=== PATIENT | male | born 1975 | race African-American/Black ===

== ENCOUNTER 2018-03-30 22:33 | Emergency (ER) | payer OTHER ==
[~2018-03-30] VITALS: Ht 175.3 cm; Wt 86.2 kg
[~2018-03-30 22:33] MED LIST: AMBIEN10 MG ORAL; BENZTROPINE ME0.5 MG PO; CLONIDINE1 EAC1 TD; SEROQUEL400 MG ORAL; SERTRALINE HCL100 MG PO; ZOLOFT25 MG ORAL
[2018-03-30 22:35] VITALS: BP 160/82
--- NOTE | 2018-03-30 22:35 | NUR ---
ED Nurse Note: Patient has back pain 10/10, denies nausea and vomiting. pt stated he doesnt feel good. maybe it his kidney that has a proble, pt able to give urine sample and sent to lab. will continue to monitor
[2018-03-30] MEDS ORDERED: Morphine Sulfate 4mg/ml Inj (IV/IM USE ONLY) IVP ONE (23:15)
--- NOTE | 2018-03-30 23:20 | NUR ---
ED Nurse Note: pt went to ct with tech
--- NOTE | 2018-03-30 23:30 | NUR ---
ED Nurse Note: pt went back from ct with tech
[2018-03-30 23:42] LABS: BASOPHILS % (AUTO) 0.9 % (0.0-2.0); HEMATOCRIT 46.6 % (42.0-52.0); HEMOGLOBIN 15.8 G/DL (14.2-18.0); LYMPHOCYTES % (AUTO) 22.2 % (20.0-45.0); MEAN CORPUSCULAR VOLUME 76 FL (80-99); MONOCYTES % (AUTO) 6.7 % (1.0-10.0); NEUTROPHILS % (AUTO) 68.3 % (45.0-75.0); PLATELET COUNT 398 K/UL (150-450); RED BLOOD COUNT 6.13 M/UL (4.70-6.10); RED CELL DISTRIBUTION WIDTH 13.7 % (11.6-14.8); WHITE BLOOD COUNT 14.3 K/UL (4.8-10.8)
[2018-03-30 23:43] LABS: APPEARANCE,URINE CLEAR; BILIRUBIN, URINE NEGATIVE (NEGATIVE); GLUCOSE, URINE (UA) NEGATIVE (NEGATIVE); KETONES,URINE NEGATIVE (NEGATIVE); LEUKOCYTE ESTERASE ,URINE NEGATIVE (NEGATIVE); NITRITE,URINE NEGATIVE (NEGATIVE); PH,URINE 6 (4.5-8.0); UROBILINOGEN,URINE NORMAL MG/DL (0.0-1.0)
[2018-03-30 23:48] LABS: ANION GAP 14 mmol/L (5-15); BLOOD UREA NITROGEN 18 mg/dL (7-18); CALCIUM 10.5 MG/DL (8.5-10.1); CARBON DIOXIDE 25 MMOL/L (21-32); CHLORIDE 100 MMOL/L (98-107); CREATININE 1.3 MG/DL (0.55-1.30); SODIUM 138 MMOL/L (136-145)
[2018-03-30 23:52] LABS: PROTEIN,URINE NEGATIVE (NEGATIVE)
[2018-03-30 23:52] LABS: ALANINE AMINOTRANSFERASE 22 U/L (12-78); ALBUMIN 4.9 G/DL (3.4-5.0); ALBUMIN/GLOBULIN RATIO 1.1 (1.0-2.7); ALKALINE PHOSPHATASE 76 U/L (46-116); ASPARTATE AMINO TRANSFERASE 22 U/L (15-37); BILIRUBIN,TOTAL 0.5 MG/DL (0.2-1.0)
[2018-03-30 23:53] LABS: COLOR,URINE YELLOW
--- NOTE | 2018-03-31 | NUR ---
ED Nurse Note: Received patient from JUAN CARLOS Hardy. Patient AO4. NAD. VSS. Attached to the monitor.
[2018-03-31 00:02] VITALS: BP 151/84
[2018-03-31] MEDS ORDERED: Aspirin Baby 81mg ORAL ONE (00:15)
[2018-03-31] MEDS ORDERED: Nitroglycerin Subl 0.4mg tab SL ONE (00:15)
[2018-03-31 00:44] VITALS: BP 109/67
--- NOTE | 2018-03-31 00:56 | Emergency Room Report ---
History of Present Illness General Chief Complaint: Back Pain-No Injury Source: Patient Present Illness HPI Is a 43-year-old male with history hypertension. He takes clonidine 0.3 mg 3 times a day. He been off it for a while. Start back today. He presents with chief complaint of back pain and chest pain. Ongoing for 2 days. Pain to the back is localized to the right side. He said this is kidney problem. He has history of kidney stone. Chest pain is to the left side sharp in nature. Comes and go. No exertional component. No fever chills but no nausea no vomiting. Pain is 9 out of 10. No incontinence of bowel or urine. No exertional component. No diaphoresis. Allergies: Coded Allergies: HALOPERIDOL (Verified Allergy, Unknown, 03/30/18) PALIPERIDONE (Verified Allergy, Unknown, 03/30/18) Patient History Past Medical History: see triage record, old chart reviewed, HTN Past Surgical History: other Pertinent Family History: none Social History: Reports: smoking Immunizations: other Reviewed Nursing Documentation: PMH: Agreed; PSxH: Agreed Nursing Documentation-PMH Hx Hypertension: Yes History Of Psychiatric Problem: Yes - bipolar Review of Systems Eye: Denies: eye pain, blurred vision ENT: Denies: ear pain, nose congestion, throat swelling Respiratory: Denies: cough, shortness of breath Cardiovascular: Reports: chest pain; Denies: palpitations Gastrointestinal: Denies: abdominal pain, diarrhea, nausea, vomiting Musculoskeletal: Reports: back pain; Denies: joint pain Skin: Denies: rash Neurological: Denies: headache, numbness Endocrine: Denies: increased thirst, increased urine Hematologic/Lymphatic: Denies: easy bruising All Other Systems: negative except mentioned in HPI Physical Exam Vital Signs Date Time Temp Pulse Resp B/P (MAP) Pulse Ox O2 Delivery O2 Flow Rate FiO2 03/30/18 22:24 97.5 112 16 160/82 95 Room Air vitals with hypertension Sp02 EP Interpretation: reviewed, normal General Appearance: well appearing, no apparent distress, alert Head: normocephalic, atraumatic Eyes: bilateral eye PERRL, bilateral eye EOMI ENT: hearing grossly normal, normal pharynx Neck: full range of motion, supple, no meningismus Respiratory: chest non-tender, lungs clear, normal breath sounds Cardiovascular #1: regular rate, rhythm, no murmur Gastrointestinal: normal bowel sounds, non tender, no mass, no organomegaly, no bruit, non-distended Musculoskeletal: back normal, gait/station normal, normal range of motion Psychiatric: mood/affect normal Skin: warm/dry Medical Decision Making Diagnostic Impression: Primary Impression: Chest pain Qualified Codes: R07.9 - Chest pain, unspecified Additional Impressions: Hypertension Qualified Codes: I10 - Essential (primary) hypertension Back pain Qualified Codes: M54.5 - Low back pain ER Course Patient presents with back pain and chest pain. CT scan negative for renal colic or acute abdomen. Back pain is most likely muscular skeletal pain. No evidence of renal infarct. No evidence of cauda equina syndrome, spinal epidural abscess or neoplastic process. Chest pain improved with nitroglycerin and aspirin. Blood pressure improved. Because of his severely high blood pressure and chest pain, will admit versus transfer for further workup. I discussed case with Dr. Aceves who accepted pt for transfer to [facility]. Laboratory Tests Test 03/30/18 23:12 03/30/18 23:14 03/31/18 02:00 Urine Color Yellow Urine Appearance Clear Urine pH 6 (4.5-8.0) Urine Specific [place] 1.020 (1.005-1.035) Urine Protein Negative (NEGATIVE) Urine Glucose (UA) Negative (NEGATIVE) Urine Ketones Negative (NEGATIVE) Urine Blood Negative (NEGATIVE) Urine Nitrite Negative (NEGATIVE) Urine Bilirubin Negative (NEGATIVE) Urine Ictotest Negative (NEGATIVE) Urine Urobilinogen Normal MG/DL (0.0-1.0) Urine Leukocyte Esterase Negative (NEGATIVE) Urine Opiates Screen Negative (NEGATIVE) Urine Barbiturates Screen Negative (NEGATIVE) Phencyclidine (PCP) Screen Negative (NEGATIVE) Urine Amphetamines Screen Negative (NEGATIVE) Urine Benzodiazepines Screen Positive (NEGATIVE) H Urine Cocaine Screen Negative (NEGATIVE) Urine Marijuana (THC) Screen Negative (NEGATIVE) White Blood Count 14.3 K/UL (4.8-10.8) H Red Blood Count 6.13 M/UL (4.70-6.10) H Hemoglobin 15.8 G/DL (14.2-18.0) Hematocrit 46.6 % (42.0-52.0) Mean Corpuscular Volume 76 FL (80-99) L Mean Corpuscular Hemoglobin 25.8 PG (27.0-31.0) L Mean Corpuscular Hemoglobin Concent 33.9 G/DL (32.0-36.0) Red Cell Distribution Width 13.7 % (11.6-14.8) Platelet Count 398 K/UL (150-450) Mean Platelet Volume 5.1 FL (6.5-10.1) L Neutrophils (%) (Auto) 68.3 % (45.0-75.0) Lymphocytes (%) (Auto) 22.2 % (20.0-45.0) Monocytes (%) (Auto) 6.7 % (1.0-10.0) Eosinophils (%) (Auto) 2.0 % (0.0-3.0) Basophils (%) (Auto) 0.9 % (0.0-2.0) Sodium Level 138 MMOL/L (136-145) Potassium Level 4.0 MMOL/L (3.5-5.1) Chloride Level 100 MMOL/L (98-107) Carbon Dioxide Level 25 MMOL/L (21-32) Anion Gap 14 mmol/L (5-15) Blood Urea Nitrogen 18 mg/dL (7-18) Creatinine 1.3 MG/DL (0.55-1.30) Estimat Glomerular Filtration Rate > 60 mL/min (>60) Glucose Level 119 MG/DL (74-106) H Calcium Level 10.5 MG/DL (8.5-10.1) H Total Bilirubin 0.5 MG/DL (0.2-1.0) Aspartate Amino Transf (AST/SGOT) 22 U/L (15-37) Alanine Aminotransferase (ALT/SGPT) 22 U/L (12-78) Alkaline Phosphatase 76 U/L (46-116) Troponin I 0.023 ng/mL (0.000-0.056) 0.030 ng/mL (0.000-0.056) Total Protein 9.2 G/DL (6.4-8.2) H Albumin 4.9 G/DL (3.4-5.0) Globulin 4.3 g/dL Albumin/Globulin Ratio 1.1 (1.0-2.7) Lipase 248 U/L (73-393) Lab Results Impression labs unremarkable EKG Diagnostic Results Rate: normal Rhythm: NSR ST Segments: other - LVH ASA given to the pt in ED: Yes Rhythm Strip Diag. Results Rhythm Strip Time: 00:54 EP Interpretation: yes Rate: 97 Rhythm: NSR, no PVC's, no ectopy Chest X-Ray Diagnostic Results Chest X-Ray Diagnostic Results : Chest X-Ray Ordered: Yes Indication: Chest Pain EP Interpretation: Yes Interpretation: no consolidation, no effusion, no pneumothorax, no acute cardiopulmonary disease Impression: No acute disease Electronically Signed by: Mahesh Pearson MD CT/MRI/US Diagnostic Results CT/MRI/US Diagnostic Results : Imaging Test Ordered: CT abdomen and pelvis Impression Read by radiologist. Negative. Last Vital Signs Date Time Temp Pulse Resp B/P (MAP) Pulse Ox O2 Delivery O2 Flow Rate FiO2 03/31/18 00:44 98.0 115 16 109/67 96 Room Air Status: improved Disposition: XFER [facility] Condition: Stable Mahesh Pearson MD Mar 31, 2018 00:56
[2018-03-31 02:00] VITALS: BP 118/74
--- NOTE | 2018-03-31 02:00 | NUR ---
ED Nurse Note: Repeat lactic drawn; sent down to lab.
--- NOTE | 2018-03-31 04:00 | NUR ---
ED Nurse Note: patient asleep NAD. VSS
[2018-03-31 04:54] VITALS: BP 153/92
[2018-03-31] MEDS ORDERED: Norco 5mg/325mg tab ORAL ONE (05:00)
--- NOTE | 2018-03-31 06:28 | NUR ---
ED Nurse Note: Left message for report to [facility]. Patient to be admitted to Telemetry 305-2 under the care of MD Ketan. Awaiting call back.
--- NOTE | 2018-03-31 07:00 | NUR ---
ED Nurse Note: Left message for report to [facility]. Awaiting callback.
--- NOTE | 2018-03-31 07:05 | NUR ---
HAND-OFF: Report given to JUAN CARLOS Green. Patient in stable condition. Plan of care endorsed.
--- NOTE | 2018-03-31 07:21 | NUR ---
ED Nurse Note: Tried giving report to [facility] RN unavailable. Will try again later.
--- NOTE | 2018-03-31 07:27 | NUR ---
ED Nurse Note: PER STEVEN FROM [facility], TRANSPORTATION WILL BE HERE ABOUT 15 MINUTES FROM NOW
[2018-03-31 07:40] VITALS: BP 123/84
--- NOTE | 2018-03-31 07:53 | NUR ---
ED Nurse Note: Gave telephone report to JUAN CARLOS Soto from [facility].
--- NOTE | 2018-03-31 07:55 | NUR ---
ED Nurse Note: Gave report to [facility] G12.
[2018-03-31 08:09] VITALS: BP 117/74
--- NOTE | 2018-03-31 08:21 | NUR ---
ED Nurse Note: Pt left w/ transport to go to [facility]. No acute distress noted. Left ER w/ all belongings.
--- NOTE | 2018-03-31 10:41 | Diagnostic Imaging Report ---
Indication: Reason For Exam: ABD PAIN Technique: Spiral acquisitions obtained through the abdomen and pelvis. No oral contrast utilized, per emergency room physician request No IV contrast utilized, per referring physician request.. Multiplanar reconstructions were generated. Total dose length product 622.54 mGycm. CTDIvol(s) 12.6 mGy. Dose reduction achieved using automated exposure control Comparison: None Findings: The appendix is normal. There is colonic diverticulosis. No evidence of acute diverticulitis. No small bowel distention. No free or loculated intraperitoneal gas or fluid is evident. Distal esophagus, stomach, duodenum are unremarkable. There are small fat-containing bilateral inguinal hernias Lack of IV contrast limits assessment of the solid organs. The liver is mildly hypoattenuating, consistent with fatty change. Gallbladder, bile ducts, pancreas, spleen, adrenals are unremarkable. The kidneys demonstrate multiple intrarenal calyceal calculi measuring up to 3 mm in diameter. Lobulated contour of both kidneys suggests prior scarring. No evidence of hydronephrosis, hydroureter, or ureteral calculi. No pelvic mass or adenopathy. Nondistended bladder. The included lung bases are clear. The bones are unremarkable. Impression: No acute abnormality. Colonic diverticulosis. No evidence of diverticulitis Nonobstructive bilateral intrarenal calculi. This agrees with the preliminary interpretation provided overnight by [facility] teleradiology service. The CT scanner at [facility] is accredited by the [employer] and the scans are performed using protocols designed to limit radiation exposure to as low as reasonably achievable to attain images of sufficient resolution adequate for diagnostic evaluation.
--- NOTE | 2018-03-31 11:29 | Diagnostic Imaging Report ---
Indication: Reason For Exam: CP Technique: One view of the chest Comparison: Findings: Lungs and pleural spaces are clear. Heart size is borderline enlarged Impression: No acute process Borderline cardiomegaly
--- NOTE | 2018-04-01 18:39 | Cardiology Report ---
APPROVED REPORT EKG Measurement Heart [id number] NE [id number] [id number] Sinus tachycardia Possible Left atrial enlargement Left ventricular hypertrophy T wave abnormality, consider inferolateral ischemia Abnormal ECG
== END 2018-03-31 08:23 | disposition other institution (70) ==
LOC: EDBD 22:33 → EMR 03-31 02:35
DX: R07.9 Chest pain, unspecified (principal); M54.9 Dorsalgia, unspecified; I10 Essential (primary) hypertension; F31.9 Bipolar disorder, unspecified; Z88.8 Allergy status to other drugs, medicaments and biological substances; K57.30 Diverticulosis of large intestine without perforation or abscess without bleeding; N20.0 Calculus of kidney
CPT/HCPCS: 36415; 71045; 74176; 80053; 80307; 81003; 83690; 84484; 85025; 93005; 96361; 96374; 96375; 99285; J2270; J2405

== ENCOUNTER 2018-04-08 15:25 | Emergency (ER) | payer OTHER ==
[~2018-04-08] VITALS: Ht 175.3 cm; Wt 86.2 kg
[2018-04-08 16:05] VITALS: BP 104/83
--- NOTE | 2018-04-08 16:08 | NUR ---
ED Nurse Note: Pt BIBA escoted by BEV robb for SI. Pt states that he was sitting at home on Friday night and started to have thoughts of hurting himself, because his mother and his sister has been Dx w/ DM. Pt is AAOx4 respirations are even and unlabored. All belongings are in locker 1 and 2. Sitter at beside.
--- NOTE | 2018-04-08 16:30 | NUR ---
ED Nurse Note: Sitter request made.
[2018-04-08 18:44] LABS: BASOPHILS % (AUTO) 1.7 % (0.0-2.0); EOSINOPHILS % (AUTO) 3.1 % (0.0-3.0); HEMOGLOBIN 13.4 G/DL (14.2-18.0); LYMPHOCYTES % (AUTO) 43.1 % (20.0-45.0); MEAN CORPUSCULAR VOLUME 77 FL (80-99); MONOCYTES % (AUTO) 6.3 % (1.0-10.0); NEUTROPHILS % (AUTO) 45.9 % (45.0-75.0); PLATELET COUNT 353 K/UL (150-450); RED BLOOD COUNT 5.33 M/UL (4.70-6.10); RED CELL DISTRIBUTION WIDTH 13.7 % (11.6-14.8); WHITE BLOOD COUNT 8.8 K/UL (4.8-10.8)
[2018-04-08 19:05] VITALS: BP 108/76
--- NOTE | 2018-04-08 19:05 | NUR ---
ED Nurse Note: pt is resting in bed, pt is calm and cooperative, sitter is at bedside
[2018-04-08 19:13] LABS: ANION GAP 8 mmol/L (5-15); BLOOD UREA NITROGEN 17 mg/dL (7-18); CALCIUM 8.8 MG/DL (8.5-10.1); CARBON DIOXIDE 25 MMOL/L (21-32); CHLORIDE 103 MMOL/L (98-107); CREATININE 1.2 MG/DL (0.55-1.30); POTASSIUM 4.3 MMOL/L (3.5-5.1); SODIUM 136 MMOL/L (136-145)
[2018-04-08 19:17] LABS: ALANINE AMINOTRANSFERASE 14 U/L (12-78); ALBUMIN/GLOBULIN RATIO 1.1 (1.0-2.7); ALKALINE PHOSPHATASE 63 U/L (46-116); ASPARTATE AMINO TRANSFERASE 14 U/L (15-37); BILIRUBIN,TOTAL 0.3 MG/DL (0.2-1.0)
[2018-04-08] MEDS ORDERED: LORazepam Inj 2mg/ml 1ml IV ONE (19:45)
[2018-04-08] MEDS ORDERED: Ketorolac 30mg Inj IV ONE (19:45)
--- NOTE | 2018-04-08 19:45 | NUR ---
ED Nurse Note: PT WAS OFFERED APPLE JUICE
--- NOTE | 2018-04-08 21:08 | Emergency Room Report ---
History of Present Illness General Chief Complaint: Behavioral Complaint Source: Patient, EMS Present Illness HPI Patient has history of depression and schizophrenia. Patient is compliant with his medications although he does not take certain medications as run out of other medications such as Klonopin. Patient states that he felt depressed and suicidal today. He was unsure that he was actually to be admitted to the hospital; I want of 911 bring him here. Patient was placed on 5150 hold by police department. Patient denies any hallucinations but admits to suicidal ideation. No other complaints are noted. Symptoms noted to be severe. No other modifying factors. No other associated signs and symptoms. No other complaints were noted. Allergies: Coded Allergies: HALOPERIDOL (Verified Allergy, Unknown, 03/30/18) PALIPERIDONE (Verified Allergy, Unknown, 03/30/18) Patient History Past Medical History: psych hx, HTN Past Surgical History: none Family History: none Social History: other - denies drug use Reviewed Nursing Documentation: PMH: Agreed; PSxH: Agreed Nursing Documentation-PMH Hx Hypertension: Yes Review of Systems All Other Systems: negative except mentioned in HPI Physical Exam Vital Signs Date Time Temp Pulse Resp B/P (MAP) Pulse Ox O2 Delivery O2 Flow Rate FiO2 04/08/18 15:21 97.3 76 20 104/83 98 Room Air Sp02 EP Interpretation: reviewed, normal General Appearance: normal inspection, alert/responsive, no apparent distress, non-toxic Head: normocephalic Eyes: normal eye exam ENT: normal ENT inspection, nasal exam normal Neck: normal inspection, supple/symm/no masses Respiratory: normal inspection, effort normal, no wheezing Cardiovascular: regular rate, rhythm Gastrointestinal: non-tender, non-distended, normal bowel sounds Genitourinary: no CVA tenderness Musculoskeletal: normal inspection, normal ROM Neurologic: normal inspection Psychiatric: other - uicidal ideation Skin: normal inspection, no rash Medical Decision Making Diagnostic Impression: Primary Impression: Depression ER Course Patient presents emergency department today with depression suicidal ideation. Differential considerations include electrolyte abnormality, drug abuse, alcohol abuse, worsening psychosis, suicidal ideation, worsening depression just to name a few. Given the severity of the patient's presentation I felt this is a highly complex patient. This patient required extensive workup. Patient laboratory workup was negative. Patient was placed on a hold by police. Patient is medically cleared. Patient require evaluation by psychiatry or admission to a psychiatric unit. Labs Test 04/08/18 18:24 White Blood Count 8.8 K/UL (4.8-10.8) Red Blood Count 5.33 M/UL (4.70-6.10) Hemoglobin 13.4 G/DL (14.2-18.0) Hematocrit 41.0 % (42.0-52.0) Mean Corpuscular Volume 77 FL (80-99) Mean Corpuscular Hemoglobin 25.1 PG (27.0-31.0) Mean Corpuscular Hemoglobin Concent 32.7 G/DL (32.0-36.0) Red Cell Distribution Width 13.7 % (11.6-14.8) Platelet Count 353 K/UL (150-450) Mean Platelet Volume 5.2 FL (6.5-10.1) Neutrophils (%) (Auto) 45.9 % (45.0-75.0) Lymphocytes (%) (Auto) 43.1 % (20.0-45.0) Monocytes (%) (Auto) 6.3 % (1.0-10.0) Eosinophils (%) (Auto) 3.1 % (0.0-3.0) Basophils (%) (Auto) 1.7 % (0.0-2.0) Sodium Level 136 MMOL/L (136-145) Potassium Level 4.3 MMOL/L (3.5-5.1) Chloride Level 103 MMOL/L (98-107) Carbon Dioxide Level 25 MMOL/L (21-32) Anion Gap 8 mmol/L (5-15) Blood Urea Nitrogen 17 mg/dL (7-18) Creatinine 1.2 MG/DL (0.55-1.30) Estimat Glomerular Filtration Rate > 60 mL/min (>60) Glucose Level 96 MG/DL (74-106) Calcium Level 8.8 MG/DL (8.5-10.1) Total Bilirubin 0.3 MG/DL (0.2-1.0) Aspartate Amino Transf (AST/SGOT) 14 U/L (15-37) Alanine Aminotransferase (ALT/SGPT) 14 U/L (12-78) Alkaline Phosphatase 63 U/L (46-116) Total Protein 7.8 G/DL (6.4-8.2) Albumin 4.0 G/DL (3.4-5.0) Globulin 3.8 g/dL Albumin/Globulin Ratio 1.1 (1.0-2.7) Salicylates Level 4.4 ug/mL (2.8-20) Urine Opiates Screen Negative (NEGATIVE) Acetaminophen Level < 2 MCG/ML (10-30) Urine Barbiturates Screen Negative (NEGATIVE) Phencyclidine (PCP) Screen Negative (NEGATIVE) Urine Amphetamines Screen Negative (NEGATIVE) Urine Benzodiazepines Screen Positive (NEGATIVE) Urine Cocaine Screen Negative (NEGATIVE) Urine Marijuana (THC) Screen Negative (NEGATIVE) Serum Alcohol < 3 mg/dL Last Vital Signs Date Time Temp Pulse Resp B/P (MAP) Pulse Ox O2 Delivery O2 Flow Rate FiO2 04/08/18 20:19 97.3 04/08/18 19:05 84 18 108/76 100 Room Air Status: unchanged Condition: Stable Referrals: [facility],REFERRING (PCP) Pérez Crouch MD Apr 08, 2018 21:08
[2018-04-08 21:30] VITALS: BP 124/85
--- NOTE | 2018-04-08 23:27 | NUR ---
[facility] was called spoke francisco Collins and paperwork has been faxed and received @ [phone]
[2018-04-08 23:33] VITALS: BP 117/78
--- NOTE | 2018-04-08 23:47 | NUR ---
[facility] was called spoke to Geremias and paperwork has been faxed over @[phone]
--- NOTE | 2018-04-09 00:50 | NUR ---
[facility] was called spoke w/ Yogi and paperwork has been faxed over @[phone]
--- NOTE | 2018-04-09 01:11 | NUR ---
[facility] was called spoke w/ Sammie and paperwork has been faxed at [phone]
--- NOTE | 2018-04-09 01:12 | NUR ---
[facility] was called spoke w/ Fermin and paperwork was faxed over @[phone]
--- NOTE | 2018-04-09 01:13 | NUR ---
[facility] was called spoke francisco Saxena and was instructed to call back after [phone]
--- NOTE | 2018-04-09 01:22 | NUR ---
ED Nurse Note: PT WOKE UP FROM SLEEP, OFFERED PT JUICE AND SANDWHICH. PT IS COOPERATIVE, PT DENIES SUICIDAL PLAN. PT VSS AT THE MOMENT WILL CONTINUE TO MONITOR AND AWAIT FURTHER ERMD ORDERS
[2018-04-09 01:30] VITALS: BP 124/86
[2018-04-09] MEDS ORDERED: Acetaminophen 500mg (ES) tab ORAL ONE (02:45)
[2018-04-09 03:34] VITALS: BP 115/74
[2018-04-09 05:35] VITALS: BP 129/85
--- NOTE | 2018-04-09 05:41 | NUR ---
[facility] was called spoke w/ Jacqueline and no bed will be avaliable this week.
--- NOTE | 2018-04-09 05:50 | NUR ---
ED Nurse Note: pt meal tray has been ordered awaiting delivery, pt is asleep at the moment with sitter
--- NOTE | 2018-04-09 06:22 | NUR ---
[facility] has been called, spoke with Charles and paperwork has been faxed over @[phone]
--- NOTE | 2018-04-09 06:44 | NUR ---
ED Nurse Note: pt breakfast at bedside
[2018-04-09 07:15] VITALS: BP 129/85
--- NOTE | 2018-04-09 07:15 | NUR ---
ED Nurse Note: report received. pt lying in bed comfortably. no facial grimacing or moaning noted. AAO x4. respirations even and non-labored noted. skin warm to touch. no open wound noted. tooth brush provide with toothpaste for hygiene. breakfast tray provide. IV access removed. per night sitter, pt was in sleep during whole night. denies SI/HI. RN made safety contract verbally that he will not hurt himself or others and remain safe. denies hearing voices or seeing things. pt denies to provide detail information why he felt depressed and wanted to hurt himself earlier. at this point, pt did not have any plan but he had thought that shooting himself previousley. will wait for the placement.
[2018-04-09 10:29] LABS: APPEARANCE,URINE CLEAR; BILIRUBIN, URINE NEGATIVE (NEGATIVE); GLUCOSE, URINE (UA) NEGATIVE (NEGATIVE); KETONES,URINE NEGATIVE (NEGATIVE); LEUKOCYTE ESTERASE ,URINE NEGATIVE (NEGATIVE); NITRITE,URINE NEGATIVE (NEGATIVE); PH,URINE 5 (4.5-8.0); PROTEIN,URINE 1+ (NEGATIVE); UROBILINOGEN,URINE NORMAL MG/DL (0.0-1.0)
[2018-04-09 10:33] LABS: COLOR,URINE YELLOW
[2018-04-09] MEDS ORDERED: LORazepam 0.5mg tab ORAL ONE (10:45)
--- NOTE | 2018-04-09 10:51 | NUR ---
ED Nurse Note: Dr. Barrett at the bed side.
[2018-04-09 11:46] VITALS: BP 152/99
--- NOTE | 2018-04-09 11:47 | NUR ---
ED Nurse Note: pt lying in bed comfortably. will wait for the placement. lunch tray provide.
--- NOTE | 2018-04-09 12:22 | Consultation ---
History of Present Illness General Chief Complaint: Suicidal Present Illness HPI the pt with history of depression and schizophrenia. Patient is compliant with his medications although he does not take his meds he stated that he was depressed and suicidal Allergies: Coded Allergies: HALOPERIDOL (Verified Allergy, Unknown, 03/30/18) PALIPERIDONE (Verified Allergy, Unknown, 03/30/18) Medication History Scheduled Quetiapine Fumarate (Seroquel), 400 MG ORAL DAILY, (Reported) Sertraline Hcl* (Zoloft*), 25 MG ORAL DAILY, (Reported) Sertraline Hcl* (Zoloft*), 100 MG PO DAILY, (Reported) Scheduled PRN Zolpidem Tartrate* (Ambien*), 10 MG ORAL BEDTIME PRN for Insomnia, (Reported) Miscellaneous Medications Benztropine Mesylate* (Cogentin*), 0.5 MG PO, (Reported) Clonidine (Clonidine), 1 EACH TD, (Reported) Patient History History Provided By: Patient, Medical Record, PMD Healthcare decision maker Resuscitation status Advanced Directive on File Physical Exam Last 24 Hour Vital Signs Date Time Temp Pulse Resp B/P (MAP) Pulse Ox O2 Delivery O2 Flow Rate FiO2 04/09/18 11:46 97.9 50 16 152/99 95 Room Air 04/09/18 07:15 98.6 55 16 129/85 95 Room Air 04/09/18 07:15 55 16 Room Air 04/09/18 05:35 97.6 51 17 129/85 95 Room Air 04/09/18 03:56 97.3 04/09/18 03:34 97.3 89 16 115/74 100 Room Air 04/09/18 01:30 97.3 90 16 124/86 99 Room Air 04/08/18 23:33 97.4 88 15 117/78 98 Room Air 04/08/18 21:30 97.2 96 16 124/85 96 Room Air 04/08/18 20:19 97.3 04/08/18 19:05 97.4 84 18 108/76 100 Room Air 04/08/18 16:05 76 20 Room Air 04/08/18 16:05 97.3 8 20 104/83 98 Room Air 04/08/18 15:21 97.3 76 20 104/83 98 Room Air Intake and Output 04/08/18 04/09/18 19:00 07:00 Intake Total 0 ml Balance 0 ml Intake Oral 0 ml Laboratory Tests Test 04/08/18 18:24 04/09/18 10:16 White Blood Count 8.8 K/UL (4.8-10.8) Red Blood Count 5.33 M/UL (4.70-6.10) Hemoglobin 13.4 G/DL (14.2-18.0) L Hematocrit 41.0 % (42.0-52.0) L Mean Corpuscular Volume 77 FL (80-99) L Mean Corpuscular Hemoglobin 25.1 PG (27.0-31.0) L Mean Corpuscular Hemoglobin Concent 32.7 G/DL (32.0-36.0) Red Cell Distribution Width 13.7 % (11.6-14.8) Platelet Count 353 K/UL (150-450) Mean Platelet Volume 5.2 FL (6.5-10.1) L Neutrophils (%) (Auto) 45.9 % (45.0-75.0) Lymphocytes (%) (Auto) 43.1 % (20.0-45.0) Monocytes (%) (Auto) 6.3 % (1.0-10.0) Eosinophils (%) (Auto) 3.1 % (0.0-3.0) H Basophils (%) (Auto) 1.7 % (0.0-2.0) Sodium Level 136 MMOL/L (136-145) Potassium Level 4.3 MMOL/L (3.5-5.1) Chloride Level 103 MMOL/L (98-107) Carbon Dioxide Level 25 MMOL/L (21-32) Anion Gap 8 mmol/L (5-15) Blood Urea Nitrogen 17 mg/dL (7-18) Creatinine 1.2 MG/DL (0.55-1.30) Estimat Glomerular Filtration Rate > 60 mL/min (>60) Glucose Level 96 MG/DL (74-106) Calcium Level 8.8 MG/DL (8.5-10.1) Total Bilirubin 0.3 MG/DL (0.2-1.0) Aspartate Amino Transf (AST/SGOT) 14 U/L (15-37) L Alanine Aminotransferase (ALT/SGPT) 14 U/L (12-78) Alkaline Phosphatase 63 U/L (46-116) Total Protein 7.8 G/DL (6.4-8.2) Albumin 4.0 G/DL (3.4-5.0) Globulin 3.8 g/dL Albumin/Globulin Ratio 1.1 (1.0-2.7) Salicylates Level 4.4 ug/mL (2.8-20) Urine Opiates Screen Negative (NEGATIVE) Acetaminophen Level < 2 MCG/ML (10-30) L Urine Barbiturates Screen Negative (NEGATIVE) Phencyclidine (PCP) Screen Negative (NEGATIVE) Urine Amphetamines Screen Negative (NEGATIVE) Urine Benzodiazepines Screen Positive (NEGATIVE) H Urine Cocaine Screen Negative (NEGATIVE) Urine Marijuana (THC) Screen Negative (NEGATIVE) Serum Alcohol < 3 mg/dL Urine Color Yellow Urine Appearance Clear Urine pH 5 (4.5-8.0) Urine Specific [place] 1.020 (1.005-1.035) Urine Protein 1+ (NEGATIVE) H Urine Glucose (UA) Negative (NEGATIVE) Urine Ketones Negative (NEGATIVE) Urine Blood Negative (NEGATIVE) Urine Nitrite Negative (NEGATIVE) Urine Bilirubin Negative (NEGATIVE) Urine Urobilinogen Normal MG/DL (0.0-1.0) Urine Leukocyte Esterase Negative (NEGATIVE) Urine RBC 0 /HPF (0 - 0) Urine WBC 0 /HPF (0 - 0) Urine Squamous Epithelial Cells Occasional /LPF Urine Bacteria Few /HPF (NONE) Urine Mucus Few /LPF (NONE/OCC) H Height (Feet): 5 Height (Inches): 9.00 Weight (Pounds): 190 Assessment/Plan Problem List: (1) MDD (major depressive disorder), recurrent episode, moderate ICD Codes: F33.1 - Major depressive disorder, recurrent, moderate SNOMED: [id number], [id number] Assessment/Plan the pt was transferred to Jin Castaneda MD Apr 09, 2018 12:22
--- NOTE | 2018-04-09 15:20 | NUR ---
ED Nurse Note: [facility] [place]. Mane [phone]
--- NOTE | 2018-04-09 15:25 | NUR ---
ED Nurse Note: Reports given to JUAN CARLOS Davidson at the [facility]. pt will be transfer to that facilty by [facility] unit [address].
[2018-04-09 15:45] VITALS: BP 145/85
--- NOTE | 2018-04-09 16:02 | NUR ---
ED Nurse Note: pt left the unit by [facility] (unit 624) with all belonings.
== END 2018-04-09 16:02 ==
LOC: EDBD 15:25 → EMR 17:30
DX: F33.1 Major depressive disorder, recurrent, moderate (principal); I10 Essential (primary) hypertension; Z88.8 Allergy status to other drugs, medicaments and biological substances
CPT/HCPCS: 36415; 80053; 80307; 80329; 81003; 85025; 96374; 96375; 99284; J1885

== ENCOUNTER 2018-06-10 10:15 | Observation (INO) | payer OTHER ==
[~2018-06-10] VITALS: Ht 175.3 cm; Wt 86.2 kg
[2018-06-10] MEDS ORDERED: CATAPRES0.3 MG ORAL (10:21)
[2018-06-10] MEDS ORDERED: SEROQUEL200 MG ORAL (10:23)
[2018-06-10] MEDS ORDERED: SERTRALINE HCL100 MG PO (10:23)
--- NOTE | 2018-06-10 10:40 | Emergency Room Report ---
History of Present Illness General Chief Complaint: Chest Pain Source: Patient Present Illness HPI Patient presents with 3 days of intermittent left-sided chest pain. He feels that sharp and radiating towards his back along the area underneath his breast and nipple. He denies any fevers or chills. He feels it increased stress at this time and is depressed. He tried smoking marijuana that he hasn't done for 5 years which seemed to make it worse. He's been trying to deal with anxiety recently. He's felt nauseated. The pain is rated 10/10 at this time. It is worsened with palpation and changing position. No productive cough or sore throat. In March he was evaluated here and transferred. He doesn't member the workup but believes that it treadmill was done. They didn't recommend any further treatment at that time. The patient has hypertension. He ran of his Catapres yesterday. This is the only medication he takes. The patient denies any calf pain or edema. No rashes. Allergies: Coded Allergies: HALOPERIDOL (Verified Allergy, Unknown, 06/10/18) PALIPERIDONE (Verified Allergy, Unknown, 06/10/18) Patient History Past Medical History: see triage record, old chart reviewed Social History: Reports: smoking, drug use - THC Social History Narrative lives by himself Reviewed Nursing Documentation: PMH: Agreed; PSxH: Agreed Nursing Documentation-PMH Past Medical History: No History, Except For Hx Hypertension: Yes Review of Systems All Other Systems: negative except mentioned in HPI Physical Exam Vital Signs Date Time Temp Pulse Resp B/P (MAP) Pulse Ox O2 Delivery O2 Flow Rate FiO2 06/10/18 10:17 98.8 115 16 187/128 98 Sp02 EP Interpretation: reviewed, normal General Appearance: well appearing, no apparent distress, GCS 15 Head: normocephalic Eyes: bilateral eye normal inspection, bilateral eye PERRL ENT: moist mucus membranes Neck: supple Respiratory: lungs clear, normal breath sounds, other - Some chest wall tenderness Cardiovascular #1: regular rate, rhythm, no edema Cardiovascular #2: 2+ radial (R) Gastrointestinal: normal inspection, normal bowel sounds, non tender, no mass, non-distended Musculoskeletal: back normal, gait/station normal, normal range of motion Neurologic: alert, oriented x3, grossly normal Psychiatric: depressed affect, anxious Skin: normal inspection, warm/dry Medical Decision Making Diagnostic Impression: Primary Impression: Chest pain Qualified Codes: R07.9 - Chest pain, unspecified Additional Impressions: Hypertensive urgency Hypokalemia Anxiety and depression Proteinuria Qualified Codes: R80.9 - Proteinuria, unspecified ER Course Patient presents with left-sided chest pain. The history is somewhat atypical however the patient has risk factor of hypertension. Differential includes acute myocardial infarction, costochondritis, pleurisy, acute coronary syndrome , pneumothorax, amongst others. Evaluation will be with EKG, chest x-ray and labs. The patient will be treated with Toradol initially. Clearly he has exacerbation of depressive symptomatology and this might be somatization. His blood pressures high and needs to be addressed. He will be given a dose of his clonidine. EKG with LBBB, LAE. CXR with min inc cor. Labs with normal troponin, normal CBC (min elevation of WBC), CMP. UA with ketones and protein. BP still elevated. Still with pain. Will admit tele obs. Norvasc not help BP. Ordered hydralazine. BP still high but slightly better after hydralazine. Nasal congestion. Antihistamine ordered. Admit obs Dr. Carpio. Laboratory Tests Test 06/10/18 10:47 06/10/18 11:00 06/10/18 11:30 White Blood Count 11.9 K/UL (4.8-10.8) H Red Blood Count 6.37 M/UL (4.70-6.10) H Hemoglobin 16.1 G/DL (14.2-18.0) Hematocrit 48.6 % (42.0-52.0) Mean Corpuscular Volume 76 FL (80-99) L Mean Corpuscular Hemoglobin 25.2 PG (27.0-31.0) L Mean Corpuscular Hemoglobin Concent 33.0 G/DL (32.0-36.0) Red Cell Distribution Width 15.0 % (11.6-14.8) H Platelet Count 305 K/UL (150-450) Mean Platelet Volume 5.5 FL (6.5-10.1) L Neutrophils (%) (Auto) 77.4 % (45.0-75.0) H Lymphocytes (%) (Auto) 15.2 % (20.0-45.0) L Monocytes (%) (Auto) 5.8 % (1.0-10.0) Eosinophils (%) (Auto) 0.7 % (0.0-3.0) Basophils (%) (Auto) 0.9 % (0.0-2.0) Sodium Level 140 MMOL/L (136-145) Potassium Level 3.3 MMOL/L (3.5-5.1) L Chloride Level 99 MMOL/L (98-107) Carbon Dioxide Level 23 MMOL/L (21-32) Anion Gap 18 mmol/L (5-15) H Blood Urea Nitrogen 13 mg/dL (7-18) Creatinine 1.1 MG/DL (0.55-1.30) Estimate Glomerular Filtration Rate > 60 mL/min (>60) Glucose Level 105 MG/DL (74-106) Calcium Level 9.7 MG/DL (8.5-10.1) Total Bilirubin 1.1 MG/DL (0.2-1.0) H Direct Bilirubin 0.2 MG/DL (0.0-0.3) Aspartate Amino Transferase (AST) 33 U/L (15-37) Alanine Aminotransferase (ALT) 20 U/L (12-78) Alkaline Phosphatase 69 U/L (46-116) Total Creatine Kinase 769 U/L (26-308) H Troponin I 0.013 ng/mL (0.000-0.056) Pro-B-Type Natriuretic Peptide 93 pg/mL (0-125) Total Protein 9.1 G/DL (6.4-8.2) H Albumin 5.0 G/DL (3.4-5.0) Globulin 4.1 g/dL Albumin/Globulin Ratio 1.2 (1.0-2.7) Lipase 108 U/L (73-393) Urine Color Yellow Urine Appearance Clear Urine pH 6 (4.5-8.0) Urine Specific [place] 1.020 (1.005-1.035) Urine Protein 3+ (NEGATIVE) H Urine Glucose (UA) Negative (NEGATIVE) Urine Ketones 3+ (NEGATIVE) H Urine Blood 1+ (NEGATIVE) H Urine Nitrite Negative (NEGATIVE) Urine Bilirubin 1+ (NEGATIVE) H Urine Ictotest Negative (NEGATIVE) Urine Urobilinogen 8 MG/DL (0.0-1.0) H Urine Leukocyte Esterase 1+ (NEGATIVE) H Urine RBC 0-2 /HPF (0 - 0) H Urine WBC 0-2 /HPF (0 - 0) Urine Squamous Epithelial Cells Occasional /LPF Urine Bacteria Occasional /HPF (NONE) Urine Mucus Many /LPF (NONE/OCC) H Urine Opiates Screen Negative (NEGATIVE) Urine Barbiturates Screen Negative (NEGATIVE) Phencyclidine (PCP) Screen Negative (NEGATIVE) Urine Amphetamines Screen Negative (NEGATIVE) Urine Benzodiazepines Screen Positive (NEGATIVE) H Urine Cocaine Screen Negative (NEGATIVE) Urine Marijuana (THC) Screen Positive (NEGATIVE) H Prothrombin Time 11.7 SEC (9.30-11.50) H Prothrombin Time INR 1.1 (0.9-1.1) PTT 25 SEC (23-33) EKG Diagnostic Results Rate: normal Rhythm: NSR ST Segments: no acute changes - LAE, LBBB Rhythm Strip Diag. Results EP Interpretation: yes Rhythm: NSR, no PVC's, no ectopy Chest X-Ray Diagnostic Results Chest X-Ray Diagnostic Results : Chest X-Ray Ordered: Yes # of Views/Limited/Complete: 1 View Indication: Chest Pain EP Interpretation: Yes Interpretation: no consolidation, no effusion, no pneumothorax, other - inc Cor Impression: Other Electronically Signed by: Electronically signed by Tam Stern MD Last Vital Signs Date Time Temp Pulse Resp B/P (MAP) Pulse Ox O2 Delivery O2 Flow Rate FiO2 06/10/18 23:17 Room Air 06/10/18 21:58 179/121 06/10/18 21:55 71 97 06/10/18 20:00 98.2 18 Status: improved Disposition: HOME, SELF-CARE Condition: Improved Tam Stern MD Jun 10, 2018 10:40
[2018-06-10] MEDS ORDERED: Ketorolac 30mg Inj IV ONE ×2 (10:45→15:30)
[2018-06-10 10:53] VITALS: BP 184/133
[2018-06-10 11:08] LABS: BASOPHILS % (AUTO) 0.9 % (0.0-2.0); EOSINOPHILS % (AUTO) 0.7 % (0.0-3.0); HEMATOCRIT 48.6 % (42.0-52.0); HEMOGLOBIN 16.1 G/DL (14.2-18.0); LYMPHOCYTES % (AUTO) 15.2 % (20.0-45.0); MEAN CORPUSCULAR VOLUME 76 FL (80-99); MONOCYTES % (AUTO) 5.8 % (1.0-10.0); NEUTROPHILS % (AUTO) 77.4 % (45.0-75.0); PLATELET COUNT 305 K/UL (150-450); RED BLOOD COUNT 6.37 M/UL (4.70-6.10); WHITE BLOOD COUNT 11.9 K/UL (4.8-10.8)
--- NOTE | 2018-06-10 11:10 | Diagnostic Imaging Report ---
Indication: Chest pain Technique: One view of the chest Comparison: 03/31/2018 Findings: Lungs and pleural spaces are clear. Heart size is upper limits normal. No significant interim change Impression: No acute process
[2018-06-10 11:11] LABS: APPEARANCE,URINE CLEAR; BILIRUBIN, URINE 1+ (NEGATIVE); GLUCOSE, URINE (UA) NEGATIVE (NEGATIVE); KETONES,URINE 3+ (NEGATIVE); LEUKOCYTE ESTERASE ,URINE 1+ (NEGATIVE); NITRITE,URINE NEGATIVE (NEGATIVE); PH,URINE 6 (4.5-8.0); PROTEIN,URINE 3+ (NEGATIVE); UROBILINOGEN,URINE 8 MG/DL (0.0-1.0)
[2018-06-10 11:17] LABS: ANION GAP 18 mmol/L (5-15); BLOOD UREA NITROGEN 13 mg/dL (7-18); CALCIUM 9.7 MG/DL (8.5-10.1); CARBON DIOXIDE 23 MMOL/L (21-32); CHLORIDE 99 MMOL/L (98-107); CREATININE 1.1 MG/DL (0.55-1.30); POTASSIUM 3.3 MMOL/L (3.5-5.1); SODIUM 140 MMOL/L (136-145)
[2018-06-10 11:21] LABS: COLOR,URINE YELLOW
--- NOTE | 2018-06-10 11:26 | NUR ---
ED Nurse Note: pt walked in c/o cp . pt placed on monitor labs and urine sent . Ermd juan m done . pt hard stick.
--- NOTE | 2018-06-10 11:27 | NUR ---
ED Nurse Note: lab at bedside drawing blue top
[2018-06-10 11:38] LABS: ALBUMIN/GLOBULIN RATIO 1.2 (1.0-2.7); ALKALINE PHOSPHATASE 69 U/L (46-116); ASPARTATE AMINO TRANSFERASE 33 U/L (15-37); BILIRUBIN,TOTAL 1.1 MG/DL (0.2-1.0); CREATINE KINASE 769 U/L (26-308)
[2018-06-10 11:40] LABS: BILIRUBIN,DIRECT 0.2 MG/DL (0.0-0.3)
[2018-06-10 11:45] LABS: INR 1.1 (0.9-1.1)
[2018-06-10 11:48] LABS: ALANINE AMINOTRANSFERASE 20 U/L (12-78)
--- NOTE | 2018-06-10 12:23 | NUR ---
ED Nurse Note: Dr Stern notified as patient c/o right jaw pain/toothache radiates to his head.
[2018-06-10] MEDS ORDERED: Lidocaine 2% Visc 15ml soln ORAL ONE (12:30)
[2018-06-10] MEDS ORDERED: LORazepam Inj 2mg/ml 1ml IV ONE (15:30)
--- NOTE | 2018-06-10 15:48 | NUR ---
ED Nurse Note: PT. LEFT WITH ALL HIS BELONGINGS WITH HIM. VSS. PT. ON THE CARDIAC MONITORING DURING TRANSFER TO TELEMETRY UNIT. IV ACCESS INTACT AND PATENT.
[2018-06-10 17:26] VITALS: BP 147/96
--- NOTE | 2018-06-10 17:36 | NUR ---
ED Nurse Note: report given to JUAN CARLOS Field
--- NOTE | 2018-06-10 18:00 | NUR ---
NURSE NOTES: Patient arrived from ER on [place]. Report received by JUAN CARLOS Hoskins. Patient is AAOx4. Belonging checklist done. Patient is NSR on monitor. Patient is on RA breathing even and unlabored. Patient has right wrist 20g IV that is patent and intact. Patient states 6/10 left side chest pain. He states it is sharp with occasional spikes of pain. Patient states Toradol does not work. Bed is in lowest position, bed is locked, and side rails x2. Call light within reach.
[2018-06-10 18:16] VITALS: BP 151/93
--- NOTE | 2018-06-10 19:15 | NUR ---
HAND-OFF: Report given to JUAN CARLOS Ayala. patient is resting in bed. 8/10 pain on left chest. Patient is breathing even and unlabored. Lucy states she paged Dr. Red. Plan endorsed.
--- NOTE | 2018-06-10 19:35 | NUR ---
NURSE NOTES: Received pt from JUAN CARLOS Field. Pt awake, alert, and talkative. Bed in lowest position. Call light within reach. Called and left a message with Dr. Carpio regarding admission orders. Awaiting call back. Pt c/o pain in chest and head, 09/09, but otherwise resting comfortably in bed. Will continue to monitor.
--- NOTE | 2018-06-10 19:43 | NUR ---
CASE MANAGEMENT: REVIEW 43/M BIBA FROM HOME CC: CHEST PAIN 12/10 SI: HYPERTENSIVE URGENCY . HYPOKALEMIA T 98.8 HR 115 RR 16 BP 187/128 SAT 97% ROOM AIR WBC 11.9 K 3.3 TOTAL CREATINE KINASE 769 IS: CLONIDINE 0.3MG PO X1 TORADOL IV X1 K-DUR PO X1 HYDRALAZINE IV X1 ATIVAN IV X1 NORVASC PO X1 PATIENT ADMITTED TO TELEMETRY UNIT 06/10/2018 DCP: PATIENT IS FROM HOME
[2018-06-10 20:00] VITALS: BP 162/111
[2018-06-10] MEDS ORDERED: KLONOPIN1 MG ORAL (20:07)
[2018-06-10] MEDS ORDERED: Zolpidem 5mg tab ORAL PRN (20:30)
--- NOTE | 2018-06-10 20:32 | NUR ---
NURSE NOTES: Dr. Carpio called back with the following orders: - resume home meds - clonidine .1 q4 prn sbp>150 - cardiac diet - ns 100/hr - echo and akg in AM - norco 5/325 q4 prn - heparin 5000 u sq bid - full code - observation status Will input orders and will continue to monitor.
[2018-06-10] MEDS: Heparin 5000 units/ml inj SUBQ SCH (21:00)
[2018-06-10 21:55] VITALS: BP 179/121
[2018-06-10] MEDS: QUEtiapine 200mg tab ORAL SCH (21:57)
[2018-06-10] MEDS: HYDROcodone/Acetamin 5/325 tab ORAL PRN (21:58)
--- NOTE | 2018-06-10 23:29 | NUR ---
NURSE NOTES: Dr. Carpio ordered nicotine patch and Mylanta 30cc for pts heartburn at pts request. Will continue to monitor.
[2018-06-11] VITALS: BP 172/118
[2018-06-11 04:00] VITALS: BP 157/113
[2018-06-11 05:30] VITALS: BP 157/113
[2018-06-11] MEDS: HYDROcodone/Acetamin 5/325 tab ORAL PRN (05:31)
--- NOTE | 2018-06-11 08:12 | NUR ---
HAND-OFF: Report given to JUAN CARLOS Chavez. Chester diaz.
[2018-06-11] MEDS ORDERED: Sertraline 100mg tab ORAL SCH (09:00)
[2018-06-11] MEDS: Heparin 5000 units/ml inj SUBQ SCH (09:00)
--- NOTE | 2018-06-11 09:02 | NUR ---
NURSE NOTES: received report from Lucy RANGEL. pt sleeping in bed, woke up and said he is hungry. Pt on director of cardiac rehabilitation no signs of distress. Bed in lowest position and locked. Call light with in reach. Will continue plan of care.
[2018-06-11] MEDS: QUEtiapine 200mg tab ORAL SCH (09:38)
[2018-06-11] MEDS ORDERED: NORVASC10 MG ORAL ×2 (11:02→11:03)
--- NOTE | 2018-06-11 13:35 | NUR ---
*-* UNABLE TO SEND CLINICALS NOT INSURANCE INFORMATION INT H BAR *-*
--- NOTE | 2018-06-11 14:15 | History and Physical Report ---
DATE OF ADMISSION: 06/10/2018 REASON FOR ADMISSION: Hypertension, out of control. HISTORY: This is a 43-year-old male with some vague chest pain. The patient denies any fevers or chills. The patient notes increasing stress and depression, he is asking for higher dose of opioids. The patient now admitted. The patient apparently had been previously admitted to the medical center for correlated symptoms. PAST MEDICAL HISTORY: Notable for hypertension. The patient's previous chart reviewed. The patient also has history of proteinuria, anxiety, depression, and he was previously transferred to psychiatric unit. MEDICATIONS: Reviewed. ALLERGIES: Reviewed. SOCIAL HISTORY: Otherwise, as listed. PHYSICAL EXAMINATION: GENERAL: A well-developed male, otherwise comfortable. VITAL SIGNS: Elevated blood pressure 157/113, pulse 72, respirations 19, and temperature 98.1. HEENT: Negative. NECK: Supple. LUNGS: Otherwise clear. CARDIAC: S1, S2. Regular rate and rhythm. ABDOMEN: Soft and nontender. EXTREMITIES: No edema. LABORATORY DATA: Reviewed. Potassium slightly reduced, but replaced. Troponin is negative. IMPRESSION: 1. Hypertension, poorly controlled. 2. History of psychiatric history, longstanding history. RECOMMENDATIONS: We will discharge the patient home. Resume home medication. We will give the patient [facility] for blood pressure control and asked the patient to follow up with his primary medical doctor for ongoing care and with Psychiatry for ongoing care and management. Lukas Carpio M.D. DR: GAMA JOB#: [id number] CC:
[2018-06-12] MEDS ORDERED: Benazepril 10mg tab ORAL SCH (09:00)
--- NOTE | 2018-06-12 09:41 | NUR ---
*-* INSURANCE *-* CLINICALS AND REVIEW FAXED WITH THE EXCEPTION OF THE DISCHARGE SUMMARY NOT IN THE SYSTEM. AUGUST F:[phone]
--- NOTE | 2018-06-18 14:41 | Discharge Summary ---
Discharge Summary Discharge Summary _ DATE OF ADMISSION: 06/10/2018 DATE OF DISCHARGE: 06/11/2018 DISCHARGED BY: Dr. Anitha Carpio [facility] HOSPITAL COURSE: Patient is a 43-year-old male, who presented to ED due to vague chest pain. He denied fever or chills. Patient noted increased stress and depression. He was asking for higher doses of opioids. He has past medical history notable for hypertension. On review of previous medical record, he has history of proteinuria, anxiety and depression. He was previously transferred to a psychiatric unit. On evaluation at the ED, blood pressure was elevated to 187/128, pulse rate 115. He was given clonidine. EKG showed left bundle branch block with left atrial enlargement. Chest x-ray with no acute process. Blood work showed WBC of 11.9, hemoglobin and hematocrit were stable. Potassium 3.3. Troponin was negative. Urine toxicology screen was positive for marijuana. Blood pressure continued to be elevated. He was given amlodipine and hydralazine. He was given potassium replacement. He was then admitted under observation due to poorly controlled hypertension. He was admitted to telemetry. He was resumed on home medications. He was given amlodipine and clonidine prn elevated BP. He was placed on cardiac diet. He was given heparin for DVT prophylaxis. He was eventually discharged home. Advised to follow-up with primary care doctor for ongoing care and with psychiatry for ongoing care and management. FINAL DIAGNOSES: Hypertension, poorly controlled Long-standing history of psychiatric disorder DISPOSITION: Patient was discharged home. DISCHARGE MEDICATIONS: Refer to Discharge Medication List. DISCHARGE INSTRUCTIONS: Follow-up in a week. I have been assigned to complete a discharge summary on this account, I was not involved with the patient's management. Pat Duval NP Jun 18, 2018 14:41
== END 2018-06-11 11:50 | disposition home or self-care (01) ==
LOC: EMR 15:05 → 2E 15:45 → EDBEDREQ 16:09 → 2E 22:24
DX: I10 Essential (primary) hypertension (principal); R07.9 Chest pain, unspecified; F32.9 Major depressive disorder, single episode, unspecified; F43.9 Reaction to severe stress, unspecified; F12.90 Cannabis use, unspecified, uncomplicated; E87.6 Hypokalemia; R80.9 Proteinuria, unspecified; I44.7 Left bundle-branch block, unspecified; F41.9 Anxiety disorder, unspecified; Z88.8 Allergy status to other drugs, medicaments and biological substances
CPT/HCPCS: 36415; 71045; 80053; 80307; 81003; 82248; 82550; 83690; 83880; 84484; 85025; 85610; 85730; 93005; 93306; 96361; 96374; 96375; 96376; 99284; G0378; G0379; J0360; J1885; J8499

== ENCOUNTER 2018-06-29 02:41 | Emergency (ER) | payer OTHER ==
[~2018-06-29] VITALS: Ht 175.3 cm; Wt 87.1 kg
[~2018-06-29 02:41] MED LIST changes: +CATAPRES0.3 MG ORAL; +KLONOPIN1 MG ORAL; +NORVASC10 MG ORAL; +SEROQUEL200 MG ORAL
[2018-06-29 02:59] VITALS: BP 126/74
--- NOTE | 2018-06-29 03:00 | NUR ---
ER Nurse Note: Pt came from home c/o lower right jaw since 06/28. Pt stated 8/10 throbbing pain, sudden onset. Pt took old amoxicillin and motrin; savana no relief. Right jaw swollen; pt stated he has no difficulty swallowing food, pills. Pt a&ox4, VSS, no fever. Hx of jaw infection. [facility].
[2018-06-29] MEDS ORDERED: IBUPROFEN600 MG ORAL (03:04)
[2018-06-29] MEDS ORDERED: CLINDAMYCIN HC300 MG ORAL (03:04)
--- NOTE | 2018-06-29 03:04 | Emergency Room Report ---
History of Present Illness General Chief Complaint: Toothache Source: Patient Present Illness HPI Is a 43-year-old male with history of blood pressure. He presents with chief complaint dental pain. Onset for last 2 days. Colitis the right lower jaw. Radiating up his head. Pain is 10 out of 10. No relief with ibuprofen. Said he had some leftover amoxicillin. Not helping. No fever chills but no swelling. She said he had dental infection before that went to his jaw bone and requiring PICC line and IV antibiotics. This was many months ago. Allergies: Coded Allergies: HALOPERIDOL (Verified Allergy, Unknown, 06/10/18) PALIPERIDONE (Verified Allergy, Unknown, 06/10/18) Patient History Past Medical History: see triage record, old chart reviewed, HTN Past Surgical History: other Pertinent Family History: none Social History: Denies: smoking Immunizations: other Reviewed Nursing Documentation: PMH: Agreed; PSxH: Agreed Nursing Documentation-PMH Past Medical History: No History, Except For Hx Hypertension: Yes Review of Systems Eye: Denies: eye pain, blurred vision ENT: Denies: ear pain, nose congestion, throat swelling Respiratory: Denies: cough, shortness of breath Cardiovascular: Denies: chest pain, palpitations Gastrointestinal: Denies: abdominal pain, diarrhea, nausea, vomiting Musculoskeletal: Denies: back pain, joint pain Skin: Denies: rash Neurological: Denies: headache, numbness Endocrine: Denies: increased thirst, increased urine Hematologic/Lymphatic: Denies: easy bruising All Other Systems: negative except mentioned in HPI Physical Exam Vital Signs Date Time Temp Pulse Resp B/P (MAP) Pulse Ox O2 Delivery O2 Flow Rate FiO2 06/29/18 02:43 97.3 86 16 126/74 99 Room Air vitals normal Sp02 EP Interpretation: reviewed, normal General Appearance: well appearing, no apparent distress, alert Head: normocephalic, atraumatic Eyes: bilateral eye PERRL, bilateral eye EOMI ENT: hearing grossly normal, normal pharynx, other - Oropharynx: Poor dentition. His right lower jaw has widespread dental decay to the nub. No abscess. No swelling. Neck: full range of motion, supple, no meningismus Respiratory: chest non-tender, lungs clear, normal breath sounds Cardiovascular #1: regular rate, rhythm, no murmur Gastrointestinal: normal bowel sounds, non tender, no mass, no organomegaly, no bruit, non-distended Musculoskeletal: back normal, gait/station normal, normal range of motion Psychiatric: mood/affect normal Skin: warm/dry Medical Decision Making Diagnostic Impression: Primary Impression: Toothache ER Course Patient with dental pain. I suspect a drug-seeking behavior. On the [employer] system he has multiple different controlled substance prescriptions from different doctors. Sometimes several times a month. No evidence of any abscess. We will discharge home. Last Vital Signs Date Time Temp Pulse Resp B/P (MAP) Pulse Ox O2 Delivery O2 Flow Rate FiO2 06/29/18 02:59 97.3 74 16 126/74 99 Room Air Status: unchanged Disposition: HOME, SELF-CARE Condition: Stable Scripts Ibuprofen* (MOTRIN*) 600 Mg Tablet 600 MG ORAL THREE TIMES A DAY, #30 TAB 0 Refills Prov: Mahesh Pearson MD 06/29/18 Clindamycin Hcl (CLINDAMYCIN HCL) 300 Mg Capsule 300 MG ORAL THREE TIMES A DAY, #21 CAP Prov: Mahesh Pearson MD 06/29/18 Patient Instructions: Dental Pain Additional Instructions: Follow-up with dentist [facility]. Return if symptom worsen. Mahesh Pearson MD Jun 29, 2018 03:04
[2018-06-29 03:25] VITALS: BP 126/74
--- NOTE | 2018-06-29 03:28 | NUR ---
ER Nurse Note: Pt refused pain meds; ERMD aware. Pt seen, treated, medically cleared for discharge by ERMD. Discharge instructions given with repeat verbazliaion by pt. Instructed pt to follow up with primary care provider within one week. Pt a&ox4, VSS, no signs of distress. ID band removed. Pt left with all belongings with steady gait via own transportation.
== END 2018-06-29 03:20 | disposition home or self-care (01) ==
LOC: EDBD 02:41 → EMR 03:01
DX: K08.89 Other specified disorders of teeth and supporting structures (principal); I10 Essential (primary) hypertension; Z88.8 Allergy status to other drugs, medicaments and biological substances; K02.9 Dental caries, unspecified
CPT/HCPCS: 99282

== ENCOUNTER 2018-07-06 05:06 | Emergency (ER) | payer OTHER ==
[~2018-07-06] VITALS: Ht 170.2 cm; Wt 72.6 kg
[~2018-07-06 05:06] MED LIST changes: +CLINDAMYCIN HC300 MG ORAL; +IBUPROFEN600 MG ORAL
[2018-07-06 05:10] VITALS: BP 168/100
--- NOTE | 2018-07-06 05:10 | NUR ---
ED Nurse Note: Patient biba RA 28 c/o sternal sharp stabbing chest pain that he rates 5/10, states its been going on since yesterday. Patient was given 325 ASA and 1 spray of nitro
[2018-07-06] MEDS ORDERED: CLONIDINE HCL0.3 MG PO (05:20)
--- NOTE | 2018-07-06 05:20 | NUR ---
ED Nurse Note: IV ACCESS ESTABLISHED. BLOOD COLLECTED; SENT DOWN TO LAB.
--- NOTE | 2018-07-06 05:20 | Emergency Room Report ---
History of Present Illness General Chief Complaint: Chest Pain Source: Patient Present Illness HPI Is a 43-year-old male with a history hypertension and psychiatric history. He presents with chief complaint of chest pain and high blood pressure. Onset for last 2 days. He said he lost his clonidine. Complaining of chest pain as 10 out of 10. Similar symptom in the past. He was just discharged here last month for the same thing. He is asking for narcotics for his chest pain. He called EMS from the street. He received nitroglycerin and aspirin without any relief. No radiation of his pain. No nausea no vomiting. No fever or chills. Pain is constant. Denies any other complaint. Allergies: Coded Allergies: HALOPERIDOL (Verified Allergy, Unknown, 06/10/18) PALIPERIDONE (Verified Allergy, Unknown, 06/10/18) Patient History Past Medical History: see triage record, old chart reviewed, HTN, psych hx Past Surgical History: other Pertinent Family History: none Social History: Denies: smoking Immunizations: other Reviewed Nursing Documentation: PMH: Agreed; PSxH: Agreed Nursing Documentation-PMH Past Medical History: No History, Except For Hx Hypertension: Yes Review of Systems Eye: Denies: eye pain, blurred vision ENT: Denies: ear pain, nose congestion, throat swelling Respiratory: Denies: cough, shortness of breath Cardiovascular: Reports: chest pain; Denies: palpitations Gastrointestinal: Denies: abdominal pain, diarrhea, nausea, vomiting Musculoskeletal: Denies: back pain, joint pain Skin: Denies: rash Neurological: Denies: headache, numbness Endocrine: Denies: increased thirst, increased urine Hematologic/Lymphatic: Denies: easy bruising All Other Systems: negative except mentioned in HPI Physical Exam Vital Signs Date Time Temp Pulse Resp B/P (MAP) Pulse Ox O2 Delivery O2 Flow Rate FiO2 07/06/18 05:04 98.8 100 16 98 Room Air 07/06/18 05:10 168/100 vitals with high blood pressure Sp02 EP Interpretation: reviewed, normal General Appearance: well appearing, no apparent distress, alert Head: normocephalic, atraumatic Eyes: bilateral eye PERRL, bilateral eye EOMI ENT: hearing grossly normal, normal pharynx Neck: full range of motion, supple, no meningismus Respiratory: chest non-tender, lungs clear, normal breath sounds Cardiovascular #1: regular rate, rhythm, no murmur Gastrointestinal: normal bowel sounds, non tender, no mass, no organomegaly, no bruit, non-distended Musculoskeletal: back normal, gait/station normal, normal range of motion Psychiatric: mood/affect normal Skin: warm/dry Medical Decision Making Diagnostic Impression: Primary Impression: Chest pain Qualified Codes: R07.9 - Chest pain, unspecified Additional Impression: Hypertension Qualified Codes: I10 - Essential (primary) hypertension ER Course Patient with chest pain and high blood pressure. Troponin negative. EKG is unchanged from before. I suspect a strong opioid dependence and drug-seeking behavior. On the [employer] system he has multiple controlled substance prescription for multiple prodividers. We'll discharge home. Lab Results Impression labs unremarkable. EKG Diagnostic Results Rate: normal Rhythm: NSR ST Segments: other - LBBB Rhythm Strip Diag. Results EP Interpretation: yes Rate: 94 Rhythm: NSR, no PVC's, no ectopy Last Vital Signs Date Time Temp Pulse Resp B/P (MAP) Pulse Ox O2 Delivery O2 Flow Rate FiO2 07/06/18 05:10 100 16 Room Air 07/06/18 05:10 98.8 168/100 98 Status: improved Disposition: HOME, SELF-CARE Condition: Stable Scripts Clonidine Hcl (CLONIDINE HCL) 0.3 Mg Tablet 0.3 MG PO TID, #90 TAB Prov: Mahesh Pearson MD 07/06/18 Patient Instructions: Nonspecific Chest Pain Additional Instructions: Take your blood pressure medication. Follow-up with your doctor in 7 days. Return if symptom worsen. Mahesh Pearson MD July 06, 2018 05:20
[2018-07-06 06:15] VITALS: BP 154/98
--- NOTE | 2018-07-06 06:15 | NUR ---
ER DISCHARGE NOTE: Patient is cleared to be discharged per ERMD, pt is aox4, on room air, with stable vital signs. pt was given dc and prescription instructions, pt was able to verbalize understanding, pt id band and iv site removed without complications. pt is able to ambulate with steady gait. pt took all belongings.
== END 2018-07-06 06:15 | disposition home or self-care (01) ==
LOC: EDBD 05:06 → EMR 05:20
DX: R07.9 Chest pain, unspecified (principal); I10 Essential (primary) hypertension; Z88.8 Allergy status to other drugs, medicaments and biological substances; I44.7 Left bundle-branch block, unspecified
CPT/HCPCS: 84484; 93005; 99283

== ENCOUNTER 2018-09-06 05:58 | Emergency (ER) | payer OTHER ==
[~2018-09-06] VITALS: Ht 180.3 cm; Wt 77.1 kg
[~2018-09-06 05:58] MED LIST changes: +CLONIDINE HCL0.3 MG PO
--- NOTE | 2018-09-06 06:02 | NUR ---
ED Nurse Note: [id number] WITH FLU LIKE SYMPTOMS X 2 DAYS. REPORTS vomiting x 1 time today.Pt is AO x 4times, VSS, on room air no distress. ERMD seen Pt at bedside.
--- NOTE | 2018-09-06 06:09 | Emergency Room Report ---
History of Present Illness General Chief Complaint: Flu Like Symptoms Source: Patient Present Illness HPI Please disregard this note. Allergies: Coded Allergies: HALOPERIDOL (Verified Allergy, Unknown, 06/10/18) PALIPERIDONE (Verified Allergy, Unknown, 06/10/18) Nursing Documentation-[facility] Past Medical History: No History, Except For Hx Hypertension: Yes History Of Psychiatric Problem: Yes - DEPRESSION Physical Exam Vital Signs Date Time Temp Pulse Resp B/P (MAP) Pulse Ox O2 Delivery O2 Flow Rate FiO2 09/06/18 05:57 99.0 145 14 140/97 (111) 98 Room Air Medical Decision Making Last Vital Signs Date Time Temp Pulse Resp B/P (MAP) Pulse Ox O2 Delivery O2 Flow Rate FiO2 09/06/18 05:57 99.0 145 14 140/97 (111) 98 Room Air Scripts Ondansetron (Zofran) 4 Mg Tablet 4 MG ORAL Q6H PRN for Nausea & Vomiting, #10 TAB 0 Refills Prov: Mahesh Pearson MD 09/06/18 Mahesh Pearson MD Sep 06, 2018 06:09
[2018-09-06] MEDS ORDERED: ZOFRAN4 MG ORAL (06:13)
--- NOTE | 2018-09-06 06:14 | Emergency Room Report ---
History of Present Illness General Chief Complaint: Flu Like Symptoms Source: Patient Present Illness [facility] This is a 43-year-old male with psychiatric history. He presents with chief complaint of nausea but no vomiting. Also cough and congestion and flulike symptom for last 2 days. No diarrhea. No fever chills. Denies any other complaint[place] He has some epigastric pain that he said is like 5 out of 10. Allergies: Coded Allergies: HALOPERIDOL (Verified Allergy, Unknown, 06/10/18) PALIPERIDONE (Verified Allergy, Unknown, 06/10/18) Nursing Documentation-[facility] Past Medical History: No History, Except For Hx Hypertension: Yes History Of Psychiatric Problem: Yes - DEPRESSION Review of Systems Eye: Denies: eye pain, blurred vision ENT: Denies: ear pain, nose congestion, throat swelling Respiratory: Reports: cough; Denies: shortness of breath Cardiovascular: Denies: chest pain, palpitations Gastrointestinal: Reports: abdominal pain, nausea; Denies: diarrhea, vomiting Musculoskeletal: Denies: back pain, joint pain Skin: Denies: rash Neurological: Denies: headache, numbness Endocrine: Denies: increased thirst, increased urine Hematologic/Lymphatic: Denies: easy bruising All Other Systems: negative except mentioned in HPI Physical Exam Vital Signs Date Time Temp Pulse Resp B/P (MAP) Pulse Ox O2 Delivery O2 Flow Rate FiO2 09/06/18 05:57 99.0 145 14 140/97 (111) 98 Room Air Vitals unremarkable Sp02 EP Interpretation: reviewed, normal General Appearance: well appearing, no apparent distress, alert Head: normocephalic, atraumatic Eyes: bilateral eye PERRL, bilateral eye EOMI ENT: hearing grossly normal, normal pharynx Neck: full range of motion, supple, no meningismus Respiratory: chest non-tender, lungs clear, normal breath sounds Cardiovascular #1: regular rate, rhythm, no murmur Gastrointestinal: normal bowel sounds, non tender, no mass, no organomegaly, no bruit, non-distended Musculoskeletal: back normal, gait/station normal, normal range of motion Psychiatric: mood/affect normal Medical Decision Making Diagnostic Impression: Primary Impression: Acute viral syndrome ER Course Presents with vitals syndromes. Most likely early gastroenteritis. Abdominal exam is soft. He is tolerating p.o. here. No evidence of acute abdomen or obstruction. No evidence of appendicitis. Will discharge home. Last Vital Signs Date Time Temp Pulse Resp B/P (MAP) Pulse Ox O2 Delivery O2 Flow Rate FiO2 09/06/18 05:57 99.0 145 14 140/97 (111) 98 Room Air Status: improved Disposition: HOME, SELF-CARE Condition: Stable Scripts Ondansetron (Zofran) 4 Mg Tablet 4 MG ORAL Q6H PRN for Nausea & Vomiting, #10 TAB 0 Refills Prov: Mahesh Pearson MD 09/06/18 Additional Instructions: Follow-up with your doctor in 2 to 3 days. Return if symptoms worsen. Mahesh Pearson MD Sep 06, 2018 06:14
[2018-09-06 06:16] VITALS: BP 134/83
--- NOTE | 2018-09-06 06:35 | NUR ---
ER DISCHARGE NOTE: Patient is cleared to be discharged per ERMD, pt is aox4, on room air, with stable vital signs. pt was given dc and prescription instructions, pt was able to verbalize understanding, pt id band removed without complications. pt is able to ambulate with steady gait. pt took all belongings.
== END 2018-09-06 06:35 | disposition home or self-care (01) ==
LOC: EDBD 05:58 → EMR 06:35
DX: B34.9 Viral infection, unspecified (principal); Z88.8 Allergy status to other drugs, medicaments and biological substances; I10 Essential (primary) hypertension; F32.9 Major depressive disorder, single episode, unspecified
CPT/HCPCS: 99283

== ENCOUNTER 2018-10-16 12:46 | Emergency (ER) | payer OTHER ==
[~2018-10-16] VITALS: Ht 175.3 cm; Wt 81.6 kg
[~2018-10-16 12:46] MED LIST changes: +ZOFRAN4 MG ORAL
--- NOTE | 2018-10-16 12:46 | NUR ---
ED Nurse Note: Patient brought in by ambulance c/o nausea and vomiting since last night 2AM patient reports the pain starts from the stomach and radiates to his left chest area. patient reports vomiting up bile patient is alert awake x4 ambulatory, breathing unlabored and even.
[2018-10-16] MEDS ORDERED: Ketorolac 30mg Inj IV ONE (13:15)
[2018-10-16] MEDS ORDERED: Isovue-300 100ml vial INJ PRN (13:15)
[2018-10-16 13:40] LABS: HEMATOCRIT 40.6 % (42.0-52.0); HEMOGLOBIN 13.3 G/DL (14.2-18.0); MEAN CORPUSCULAR VOLUME 80 FL (80-99); PLATELET COUNT 369 K/UL (150-450); RED BLOOD COUNT 5.09 M/UL (4.70-6.10); WHITE BLOOD COUNT 19.1 K/UL (4.8-10.8)
[2018-10-16 13:51] LABS: ANION GAP 10 mmol/L (5-15); BLOOD UREA NITROGEN 11 mg/dL (7-18); CALCIUM 9.6 MG/DL (8.5-10.1); CARBON DIOXIDE 24 MMOL/L (21-32); CHLORIDE 108 MMOL/L (98-107); CREATININE 1.2 MG/DL (0.55-1.30); POTASSIUM 3.7 MMOL/L (3.5-5.1); SODIUM 142 MMOL/L (136-145)
[2018-10-16 14:04] LABS: ALANINE AMINOTRANSFERASE 13 U/L (12-78); ALBUMIN 4.4 G/DL (3.4-5.0); ALBUMIN/GLOBULIN RATIO 1.2 (1.0-2.7); ALKALINE PHOSPHATASE 59 U/L (46-116); ASPARTATE AMINO TRANSFERASE 22 U/L (15-37); BILIRUBIN,TOTAL 0.3 MG/DL (0.2-1.0); CKMB 2.5 NG/ML (0.0-3.6); CREATINE KINASE 164 U/L (26-308)
--- NOTE | 2018-10-16 14:08 | Emergency Room Report ---
History of Present Illness General Chief Complaint: Vomiting Source: Patient Present Illness HPI 43-year-old male with history of hypertension uncontrolled as he reports he has not taken his blood pressure medication in several weeks, and heavy tobacco smoke here complaining of acute onset of epigastric pain and multiple bouts of nonbloody emesis. Denies diarrhea, blood in stool. Denies fever and chills. Reports that his symptoms started after eating applesauce 2 days ago. Has been unable to take oral hydration. Complains of palpitation however denies chest pain, shortness of breath, dizziness and headache. Patient is supposed to take clonidine 3 times a day however has not seen a primary care provider several months. Denies blurry vision, urinary symptoms. Denies blood in his vomit. Has not taken any medication for symptom relief. Allergies: Coded Allergies: HALOPERIDOL (Verified Allergy, Unknown, 06/10/18) PALIPERIDONE (Verified Allergy, Unknown, 06/10/18) Patient History Past Medical History: see triage record Past Surgical History: unable to obtain Pertinent Family History: none Social History: Reports: smoking - Daily tobacco smoke Immunizations: UTD Reviewed Nursing Documentation: PMH: Agreed; PSxH: Agreed Nursing Documentation-PMH Past Medical History: No History, Except For Hx Cardiac Problems: Yes - irreg heartrate Hx Hypertension: Yes Review of Systems All Other Systems: negative except mentioned in HPI Physical Exam Vital Signs Date Time Temp Pulse Resp B/P (MAP) Pulse Ox O2 Delivery O2 Flow Rate FiO2 10/16/18 12:39 98.4 90 18 165/114 (131) 96 Room Air Sp02 EP Interpretation: reviewed, abnormal - Elevated blood pressure Head: normocephalic, atraumatic Eyes: bilateral eye normal inspection, bilateral eye PERRL ENT: hearing grossly normal, normal pharynx, no angioedema, normal voice Neck: full range of motion, supple/symm/no masses Respiratory: chest non-tender, lungs clear, normal breath sounds, no wheezing, speaking full sentences Cardiovascular #1: regular rate, rhythm, no edema, no murmur Gastrointestinal: no mass, no organomegaly, no peritonitis, no bruit, guarding - Epigastric, other - Negative McBurney's, Rovsing's, Murray's Genitourinary: no CVA tenderness Musculoskeletal: back normal, gait/station normal, normal range of motion, non- tender, calf tenderness Neurologic: alert, oriented x3, responsive, motor strength/tone normal, sensory intact, speech normal Psychiatric: judgement/insight normal, memory normal, mood/affect normal, no suicidal/homicidal ideation Skin: no rash Lymphatic: no adenopathy Medical Decision Making PA Attestation All diagnoses and treatment plans were reviewed and discussed with my supervising physician Dr. Bonilla Diagnostic Impression: Primary Impression: Abdominal pain Additional Impressions: Diverticulosis of colon without diverticulitis Medication refill HTN (hypertension) ER Course 43-year-old male with history of hypertension uncontrolled as he reports he has not taken his blood pressure medication in several weeks, and heavy tobacco smoke here complaining of acute onset of epigastric pain and multiple bouts of nonbloody emesis. Denies diarrhea, blood in stool. Denies fever and chills. Reports that his symptoms started after eating applesauce 2 days ago. Has been unable to take oral hydration. Complains of palpitation however denies chest pain, shortness of breath, dizziness and headache. Patient is supposed to take clonidine 3 times a day however has not seen a primary care provider several months. Denies blurry vision, urinary symptoms. Denies blood in his vomit. Has not taken any medication for symptom relief. Ddx considered but are not limited to: appendicitis, cholecystis, gastritis, gastroenteritis, UTI, pyelonephritis, SBO, diverticulitis, influenza with GI manifestation, PR, Vital signs: are WNL, pt. is afebrile H&PE are most consistent with: Diverticulosis without diverticulitis, abdominal pain secondary to gastroenteritis, hypertension ORDERS: abdominal CT, abdominal pain set, EKG, Zofran, Tylenol, omeprazole, clonidine ED INTERVENTIONS: NS bolus, Zofran, Pepcid, ceftriaxone given due to elevated white count DISCHARGE: At this time pt. is stable for d/c to home. Will provide printed patient care instructions, and any necessary prescriptions. Care plan and follow up instructions have been discussed with the patient prior to discharge. Elevated white blood count can be secondary to early stages of gastroenteritis consulted supervising physician Dr. Bonilla agrees with patient discharge. EKG Diagnostic Results Rate: normal Rhythm: NSR ST Segments: no acute changes Chest X-Ray Diagnostic Results Chest X-Ray Diagnostic Results : Chest X-Ray Ordered: Yes # of Views/Limited/Complete: 1 View Indication: Other EP Interpretation: Yes DOROTHEA Xray: Interpretation reviewed, by supervising MD, and agrees with findings. Interpretation: no consolidation, no effusion, no pneumothorax Impression: No acute disease Electronically Signed by: Soumya Engel PA-C CT/MRI/US Diagnostic Results CT/MRI/US Diagnostic Results : Imaging Test Ordered: CT abdomen pelvis with contrast Impression diverticulosis without diverticulosis, appendix, pancreas, all within normal limits Last Vital Signs Date Time Temp Pulse Resp B/P (MAP) Pulse Ox O2 Delivery O2 Flow Rate FiO2 10/16/18 13:36 90 18 Room Air 10/16/18 12:39 98.4 165/114 (131) 96 Disposition: HOME, SELF-CARE Condition: Stable Scripts Clonidine Hcl (CLONIDINE HCL) 0.3 Mg Tablet 0.3 MG PO TID for 30 Days, #90 TAB Prov: Soumya Obrien 10/16/18 Acetaminophen* (TYLENOL EXTRA STRENGTH*) 500 Mg Tablet 500 MG ORAL Q6H PRN for Mild Pain/Temp > 100.5, #30 TAB 0 Refills Prov: Soumya Obrien 10/16/18 Omeprazole (OMEPRAZOLE) 20 Mg Tablet. 20 MG ORAL DAILY, #20 TAB Prov: Soumya Obrien 10/16/18 Ondansetron (Zofran) 4 Mg Tablet 4 MG ORAL Q6H PRN for Nausea & Vomiting, #12 TAB Prov: Soumya Obrien 10/16/18 Patient Instructions: Diverticulosis, Hypertension, [id number], Nausea and Vomiting, Adult Additional Instructions: Take medication as directed follow-up with your primary care provider increase oral hydration if worsening symptoms, fever and chills, blood in stool return to the emergency room. Soumya Obrien Oct 16, 2018 14:08
--- NOTE | 2018-10-16 14:18 | NUR ---
ED Nurse Note: UA SENT TO LAB
[2018-10-16 14:29] LABS: APPEARANCE,URINE CLEAR; BILIRUBIN, URINE NEGATIVE (NEGATIVE); COLOR,URINE PALE YELLOW; GLUCOSE, URINE (UA) NEGATIVE (NEGATIVE); KETONES,URINE NEGATIVE (NEGATIVE); LEUKOCYTE ESTERASE ,URINE 1+ (NEGATIVE); NITRITE,URINE NEGATIVE (NEGATIVE); PH,URINE 7 (4.5-8.0); PROTEIN,URINE NEGATIVE (NEGATIVE); UROBILINOGEN,URINE NORMAL MG/DL (0.0-1.0)
[2018-10-16] MEDS ORDERED: DiphenhydrAMINE 50mg/ml Inj IVP ONE (14:30)
[2018-10-16] MEDS ORDERED: Metoclopramide 10mg/2ml Inj IVP ONE (14:30)
--- NOTE | 2018-10-16 15:08 | Diagnostic Imaging Report ---
Clinical Indication: Nausea and vomiting last night since 2:00 AM, pain in stomach and left chest area Technique: No oral contrast utilized, per emergency room physician request IV administration nonionic contrast. Venous phase spiral acquisition obtained through the abdomen and pelvis. Multiplanar reconstructions were generated. Total dose length product 680.54 mGycm. CTDIvol(s) 13.21 mGy. Dose reduction achieved using automated exposure control Comparison: 03/30/2018 Findings: Lack of enteric contrast limits assessment of the GI tract. The appendix is normal. There is colonic diverticulosis which is fairly extensive. There is no evidence of diverticulitis. No small bowel distention. No free or loculated intraperitoneal gas or fluid. Distal esophagus, stomach, duodenum are unremarkable. No free or loculated intraperitoneal gas or fluid is evident. The liver, gallbladder, bile ducts, pancreas, spleen, adrenals, right kidney are all unremarkable. The left kidney demonstrates a subcentimeter low-attenuation lesion in the interpolar region which is too small to characterize. No renal or ureteral calculi, hydronephrosis, or hydroureter. The bladder is nondistended, unremarkable. No pelvic mass or adenopathy. No retroperitoneal or mesenteric mass or adenopathy. The included lung bases are clear. The bones are unremarkable. When compared to the prior exam, previously demonstrated hepatic hypoattenuation is not apparent currently. Previously demonstrated left intrarenal calculi are not currently evident, probably obscured by the contrast. The left renal low-attenuation lesion was not evident previously, probably due to the lack of IV contrast on the previous study Impression: Limited assessment of the GI tract, due to lack of enteric contrast demonstration No definite acute process Colonic diverticulosis, also previously reported Subcentimeter low-attenuation left renal lesion, too small to characterize, most likely benign simple cyst The CT scanner at [facility] is accredited by the [employer] and the scans are performed using protocols designed to limit radiation exposure to as low as reasonably achievable to attain images of sufficient resolution adequate for diagnostic evaluation.
--- NOTE | 2018-10-16 15:09 | Diagnostic Imaging Report ---
Indication: Chest pain Technique: One view of the chest Comparison: For 12/20/2018 Findings: Lungs and pleural spaces are clear. Heart size is normal. No significant interim change Impression: No acute process
[2018-10-16] MEDS ORDERED: cefTRIAXone 1 GM in NS 55 ML IVPB ONE (15:45)
[2018-10-16] MEDS ORDERED: ZOFRAN4 M1 ORAL (15:53)
[2018-10-16] MEDS ORDERED: OMEPRAZOLE20 M3 ORAL (15:53)
[2018-10-16] MEDS ORDERED: TYLENOL EXTRA500 MG ORAL (15:53)
[2018-10-16] MEDS ORDERED: CLONIDINE HCL0.3 MG PO (16:06)
[2018-10-16 16:07] VITALS: BP 164/105
[2018-10-16 16:30] VITALS: BP 164/105
--- NOTE | 2018-10-16 16:30 | NUR ---
ER DISCHARGE NOTE: Patient is cleared to be discharged per ARNIE MARTINEZ, pt is aox4, on room air, with stable vital signs. pt was given dc and prescription instructions, pt was able to verbalize understanding, pt id band and iv site removed without complications. pt is able to ambulate with steady gait. pt took all belongings. patient left on a taxi cab.
--- NOTE | 2018-10-20 11:16 | Cardiology Report ---
APPROVED REPORT EKG Measurement Heart [id number] Normal sinus rhythm Left ventricular hypertrophy with repolarization abnormality Abnormal ECG
== END 2018-10-16 16:30 | disposition home or self-care (01) ==
LOC: EDBD 12:46 → EMR 14:11
DX: R10.13 Epigastric pain (principal); K57.30 Diverticulosis of large intestine without perforation or abscess without bleeding; I10 Essential (primary) hypertension; Z76.0 Encounter for issue of repeat prescription; F17.200 Nicotine dependence, unspecified, uncomplicated; Z88.8 Allergy status to other drugs, medicaments and biological substances
CPT/HCPCS: 36415; 71045; 74177; 80053; 80307; 80329; 81003; 82550; 82553; 83690; 84484; 85007; 85025; 85610; 85730; 86850; 86900; 86901; 87040; 93005; 96361; 96365; 96375; 99284; J0696; J1200; J1885; J2405; J2765; Q9967; S0028

== ENCOUNTER 2019-09-17 01:06 | Emergency (ER) | payer MEDICAID, OTHER ==
[~2019-09-17 01:06] MED LIST changes: +OMEPRAZOLE20 M3 ORAL; +TYLENOL EXTRA500 MG ORAL; +ZOFRAN4 M1 ORAL
[2019-09-17] MEDS ORDERED: Ketorolac 30mg Inj IV ONE (01:45)
[2019-09-17] MEDS ORDERED: TYLENOL EXTRA500 MG ORAL (02:26)
[2019-09-17] MEDS ORDERED: LIDODERM700 M1 TOPIC (02:26)
[2019-09-17] MEDS ORDERED: Nitroglycerin 2% oint pkt TOPIC ONE (03:00)
[2019-09-17] MEDS ORDERED: CLONIDINE HCL0.3 MG PO ×2 (03:15)
== END 2019-09-17 05:35 | disposition home or self-care (01) ==
DX: R07.9 Chest pain, unspecified (principal); I10 Essential (primary) hypertension; Z88.8 Allergy status to other drugs, medicaments and biological substances; F17.200 Nicotine dependence, unspecified, uncomplicated; R00.0 Tachycardia, unspecified
CPT/HCPCS: 36415; 71045; 80053; 80307; 82962; 84484; 85025; 93005; 96374; J1885; Z7502

== ENCOUNTER 2019-11-10 13:02 | Emergency (ER) | payer MEDICAID ==
[~2019-11-10] VITALS: Ht 175.3 cm; Wt 72.6 kg
[2019-11-10 13:02] VITALS: BP 118/70
[~2019-11-10 13:02] MED LIST changes: +LIDODERM700 M1 TOPIC
[2019-11-10] MEDS ORDERED: Ketorolac 30mg Inj IV ONE (13:15)
[2019-11-10 14:02] LABS: HEMATOCRIT 48.3 % (42.0-52.0); HEMOGLOBIN 15.6 G/DL (14.2-18.0); MEAN CORPUSCULAR VOLUME 79 FL (80-99); PLATELET COUNT 371 K/UL (150-450); RED BLOOD COUNT 6.13 M/UL (4.70-6.10); RED CELL DISTRIBUTION WIDTH 13.9 % (11.6-14.8)
[2019-11-10 14:04] LABS: APPEARANCE,URINE CLEAR; BILIRUBIN, URINE 1+ (NEGATIVE); GLUCOSE, URINE (UA) NEGATIVE (NEGATIVE); KETONES,URINE 1+ (NEGATIVE); LEUKOCYTE ESTERASE ,URINE 1+ (NEGATIVE); NITRITE,URINE NEGATIVE (NEGATIVE); PH,URINE 5 (4.5-8.0); PROTEIN,URINE 2+ (NEGATIVE); UROBILINOGEN,URINE 4 MG/DL (0.0-1.0)
[2019-11-10 14:06] LABS: COLOR,URINE YELLOW
[2019-11-10 14:13] LABS: ANION GAP 12 mmol/L (5-15); BLOOD UREA NITROGEN 7 mg/dL (7-18); CALCIUM 9.1 MG/DL (8.5-10.1); CARBON DIOXIDE 24 MMOL/L (21-32); CHLORIDE 107 MMOL/L (98-107); CREATININE 1.2 MG/DL (0.55-1.30); POTASSIUM 3.7 MMOL/L (3.5-5.1); SODIUM 143 MMOL/L (136-145)
--- NOTE | 2019-11-10 14:13 | Emergency Room Report ---
History of Present Illness General Chief Complaint: Nausea Source: Patient Present Illness HPI 44-year-old male with history of high blood pressure and anxiety currently taking medication brought in by paramedics due to severe 10 out of 10 abdominal pain diffuse with multiple bouts of nonbloody emesis that started last night after eating fruits. Denies any bloody emesis however complains of few bouts of nonbloody diarrhea. Denies fever chills, cough and congestion, shortness of breath. Denies any urinary symptoms. Denies any recent travel. Abdomen is rigid and patient is guarding. Denies any drug use and alcohol intake. Reports that he smokes cigarettes. Allergies: Coded Allergies: HALOPERIDOL (Verified Allergy, Unknown, 06/10/18) PALIPERIDONE (Verified Allergy, Unknown, 06/10/18) COVID-19 Screening Contact w/high risk pt: No Experienced COVID-19 symptoms?: No COVID-19 Testing performed OBJECTIVE C DEVELOPER: No Patient History Past Medical History: see triage record Past Surgical History: none Pertinent Family History: none Social History: Reports: smoking Immunizations: UTD Reviewed Nursing Documentation: PMH: Agreed; PSxH: Agreed Nursing Documentation-PMH Past Medical History: No Stated History Hx Cardiac Problems: Yes - irreg heartrate Hx Hypertension: Yes Review of Systems All Other Systems: negative except mentioned in HPI Physical Exam Vital Signs Date Time Temp Pulse Resp B/P (MAP) Pulse Ox O2 Delivery O2 Flow Rate FiO2 11/10/19 12:59 97.9 89 18 118/70 (86) 98 Room Air Sp02 EP Interpretation: reviewed, normal General Appearance: alert, GCS 15, non-toxic, mild distress Head: normocephalic, atraumatic Eyes: bilateral eye normal inspection, bilateral eye PERRL ENT: hearing grossly normal, normal pharynx, no angioedema, normal voice Neck: supple Respiratory: chest non-tender, lungs clear, normal breath sounds, speaking full sentences Cardiovascular #1: regular rate, rhythm, no edema Gastrointestinal: normal bowel sounds, no mass, no peritonitis, non-distended, no hernia, no pulsatile mass, no rebound, guarding - Periumbilical right and left lower quadrant Rectal: deferred Genitourinary: no CVA tenderness Musculoskeletal: back normal Neurologic: alert, motor strength/tone normal, oriented x3, sensory intact, responsive, speech normal Psychiatric: judgement/insight normal, memory normal, mood/affect normal, no suicidal/homicidal ideation Skin: no rash Lymphatic: no adenopathy Medical Decision Making PA Attestation All diagnoses and treatment plans were reviewed and discussed with my supervising physician Dr. Michael Diagnostic Impression: Primary Impression: Diverticulosis Additional Impressions: Nausea and vomiting in adult patient UTI (urinary tract infection) ER Course 44-year-old male with history of high blood pressure and anxiety currently taking medication brought in by paramedics due to severe 10 out of 10 abdominal pain diffuse with multiple bouts of nonbloody emesis that started last night after eating fruits. Denies any bloody emesis however complains of few bouts of nonbloody diarrhea. Denies fever chills, cough and congestion, shortness of breath. Denies any urinary symptoms. Denies any recent travel. Abdomen is rigid and patient is guarding. Denies any drug use and alcohol intake. Reports that he smokes cigarettes. Ddx considered but are not limited to: appendicitis, cholecystis, gastritis, gastroenteritis, UTI, pyelonephritis, SBO, diverticulitis, influenza with GI manifestation, [place], pancreatitis Vital signs: are WNL, pt. is afebrile H&PE are most consistent with: UTI, diverticulosis, nausea and vomiting ORDERS: abdominal CT, abdominal pain set, EKG, chest x-ray, Zofran, omeprazole, Keflex, Tylenol ED INTERVENTIONS: NS bolus, Zofran, Pepcid, morphine, Toradol DISCHARGE: At this time pt. is stable for d/c to home. Will provide printed patient care instructions, and any necessary prescriptions. Care plan and follow up instructions have been discussed with the patient prior to discharge. Patient take medication as directed, follow primary care provider, increase oral hydration, avoid using marijuana, if worsening symptoms return to the emergency room EKG Diagnostic Results Rate: normal Rhythm: NSR ST Segments: no acute changes Other Impression No acute ST changes Chest X-Ray Diagnostic Results Chest X-Ray Diagnostic Results : Chest X-Ray Ordered: Yes # of Views/Limited/Complete: 1 View Indication: Other EP Interpretation: Yes PA Xray: Interpretation reviewed, by supervising MD, and agrees with findings. Interpretation: no consolidation, no effusion, no pneumothorax Impression: No acute disease Electronically Signed by: Soumya Engel PA-C CT/MRI/US Diagnostic Results CT/MRI/US Diagnostic Results : Imaging Test Ordered: CT abdomen pelvis with contrast Impression Diverticulosis without diverticulitis, appendix normal, otherwise all within normal limits Last Vital Signs Date Time Temp Pulse Resp B/P (MAP) Pulse Ox O2 Delivery O2 Flow Rate FiO2 11/10/19 13:02 97.9 89 18 118/70 98 Room Air Disposition: HOME, SELF-CARE Condition: Stable Referrals: NON PHYSICIAN (PCP) Patient Instructions: Diverticulosis, Nausea and Vomiting, Adult, Urinary Tract Infection Additional Instructions: Patient take medication as directed, follow primary care provider, increase oral hydration, avoid using marijuana, if worsening symptoms return to the emergency room Soumya Obrien Nov 10, 2019 14:13
[2019-11-10] MEDS ORDERED: Morphine Sulfate 2mg/ml Inj(IV/IM USE ONLY) IVP ONE (14:15)
[2019-11-10] MEDS ORDERED: Omnipaque-300 100ml vial INJ PRN (14:15)
[2019-11-10 14:17] LABS: ALANINE AMINOTRANSFERASE 12 U/L (12-78); ALBUMIN 4.1 G/DL (3.4-5.0); ALBUMIN/GLOBULIN RATIO 1.2 (1.0-2.7); ALKALINE PHOSPHATASE 59 U/L (46-116); ASPARTATE AMINO TRANSFERASE 14 U/L (15-37); BILIRUBIN,TOTAL 0.3 MG/DL (0.2-1.0); CREATINE KINASE 66 U/L (26-308)
--- NOTE | 2019-11-10 15:47 | Diagnostic Imaging Report ---
Clinical Indication: Abdominal pain, nonbloody emesis Technique: No oral contrast utilized, per emergency room physician request IV administration nonionic contrast. Venous phase spiral acquisition obtained through the abdomen and pelvis. Multiplanar reconstructions were generated. Total dose length product 256 mGycm. CTDIvol(s) 4 mGy. Dose reduction achieved using automated exposure control Comparison: 10/16/2018 Findings: Lack of enteric contrast limits assessment of the GI tract. The appendix is normal. The colon is filled with liquid. There is colonic diverticulosis. No evidence of diverticulitis. No small bowel distention. Some small bowel loops containing fluid as well. Distal esophagus, stomach, duodenum are unremarkable. No free or loculated intraperitoneal gas or fluid is evident. The liver, gallbladder, bile ducts, pancreas, spleen, adrenals, right kidney are unremarkable. Left kidney demonstrates a subcentimeter low-attenuation lesion which is too small to characterize, also evident previously. No pelvic mass or adenopathy. No retroperitoneal or mesenteric mass or adenopathy. The included lung bases demonstrate posterior dependent atelectatic changes. The bones are unremarkable. Impression: Limited assessment of the GI tract, due to lack of enteric contrast administration Fluid-filled colon, may indicate a diarrheal illness No acute process otherwise Colonic diverticulosis Unchanged probable left renal cyst The CT scanner at [facility] [place] is accredited by the [employer] and the scans are performed using protocols designed to limit radiation exposure to as low as reasonably achievable to attain images of sufficient resolution adequate for diagnostic evaluation.
[2019-11-10] MEDS ORDERED: QUEtiapine 200mg tab ORAL SCH (16:00)
[2019-11-10] MEDS ORDERED: Sertraline 50mg tab ORAL ONE (16:00)
[2019-11-10] MEDS ORDERED: Cephalexin 500mg cap ORAL ONE (16:00)
[2019-11-10] MEDS ORDERED: CEPHALEXIN500 MG ORAL (16:04)
[2019-11-10] MEDS ORDERED: TYLENOL EXTRA500 MG ORAL (16:04)
[2019-11-10] MEDS ORDERED: ZOFRAN4 M1 ORAL (16:04)
[2019-11-10] MEDS ORDERED: OMEPRAZOLE20 M3 ORAL (16:04)
[2019-11-10] MEDS ORDERED: Sertraline 100mg tab ORAL ONE (16:15)
[2019-11-10 16:17] VITALS: BP 110/74
--- NOTE | 2019-11-10 17:27 | Diagnostic Imaging Report ---
Indication: Chest pain Technique: One view of the chest Comparison: none Findings: Lungs and pleural spaces are clear. Heart size is normal. No significant change Impression: No acute process
== END 2019-11-10 16:15 | disposition home or self-care (01) ==
LOC: EDBD 13:02 → EMR 13:20
DX: K57.90 Diverticulosis of intestine, part unspecified, without perforation or abscess without bleeding (principal); R11.2 Nausea with vomiting, unspecified; N39.0 Urinary tract infection, site not specified; I10 Essential (primary) hypertension; F17.200 Nicotine dependence, unspecified, uncomplicated; Z88.8 Allergy status to other drugs, medicaments and biological substances; F41.9 Anxiety disorder, unspecified; R07.9 Chest pain, unspecified
CPT/HCPCS: 36415; 71045; 74177; 80053; 80307; 81003; 82550; 83605; 83690; 84484; 85007; 85025; 85610; 85730; 86850; 86900; 86901; 93005; 96361; 96374; 96375; G0480; J1885; J2270; J2405; J7030; Q9965; S0028; Z7502; 99284

== ENCOUNTER 2019-12-02 02:29 | Emergency (ER) | payer MEDICAID ==
[~2019-12-02] VITALS: Ht 175.3 cm; Wt 77.1 kg
[~2019-12-02 02:29] MED LIST changes: +CEPHALEXIN500 MG ORAL
[2019-12-02 02:40] VITALS: BP 154/113
--- NOTE | 2019-12-02 02:44 | Emergency Room Report ---
History of Present Illness General Chief Complaint: Dizziness Source: Patient, Medical Record Present Illness HPI 4-year-old male with a history of high blood pressure and anxiety. He presents with chief complaint of dizziness and chest pain. Onset for a day. He felt a sharp pain in his chest. Chest pain only lasted for a few minutes. No exertional component. He was just here 2 weeks ago for the same was negative. He felt some headache and dizziness. No fever chills but no nausea no vomiting. Denies any other complaint. Does have a history of high blood pressure. Said he is compliant with his medication. 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 COVID-19 Screening: Negative COVID-19 COVID-19 Testing Source: [facility] Patient History Past Medical History: see triage record, old chart reviewed, HTN, psych hx Past Surgical History: none Pertinent Family History: none Social History: Denies: smoking Immunizations: other Reviewed Nursing Documentation: PMH: Agreed; PSxH: Agreed Nursing Documentation-PMH Hx Cardiac Problems: Yes - irreg heartrate Hx Hypertension: Yes Review of Systems Eye: Denies: eye pain, blurred vision ENT: Denies: ear pain, nose congestion, throat swelling Respiratory: Denies: cough, shortness of breath Cardiovascular: Reports: chest pain; Denies: palpitations Gastrointestinal: Denies: abdominal pain, diarrhea, nausea, vomiting Musculoskeletal: Denies: back pain, joint pain Skin: Denies: rash Neurological: Reports: headache, dizziness; Denies: numbness Endocrine: Denies: increased thirst, increased urine Hematologic/Lymphatic: Denies: easy bruising All Other Systems: negative except mentioned in HPI Physical Exam Vital Signs Date Time Temp Pulse Resp B/P (MAP) Pulse Ox O2 Delivery O2 Flow Rate FiO2 12/02/19 02:30 98.1 111 18 154/113 (127) 99 Room Air Vitals with high blood pressure and tachycardia Sp02 EP Interpretation: reviewed, normal General Appearance: well appearing, no apparent distress, alert Head: normocephalic, atraumatic Eyes: bilateral eye PERRL, bilateral eye EOMI ENT: hearing grossly normal, normal pharynx Neck: full range of motion, supple, no meningismus Respiratory: chest non-tender, lungs clear, normal breath sounds Cardiovascular #1: regular rate, rhythm, no murmur Gastrointestinal: normal bowel sounds, non tender, no mass, no organomegaly, no bruit, non-distended Musculoskeletal: back normal, normal range of motion, gait/station normal Psychiatric: mood/affect normal Medical Decision Making Diagnostic Impression: Primary Impression: Dizziness of unknown cause Additional Impressions: Hypertension Qualified Codes: I10 - Essential (primary) hypertension Nonspecific chest pain ER Course Patient with atypical chest pain. No evidence of ACS, PE, dissection. Blood pressure improved. Will discharge home. EKG Diagnostic Results Rate: normal Rhythm: NSR ST Segments: no acute changes Rhythm Strip Diag. Results EP Interpretation: yes Rate: 75 Rhythm: NSR, no PVC's, no ectopy Last Vital Signs Date Time Temp Pulse Resp B/P (MAP) Pulse Ox O2 Delivery O2 Flow Rate FiO2 12/02/19 02:30 98.1 111 18 154/113 (127) 99 Room Air Status: improved Disposition: HOME, SELF-CARE Condition: Stable Patient Instructions: Dizziness Additional Instructions: Follow-up your doctor in 7 days. Take your blood pressure medication. If you continue to have symptoms, you may need a referral to see a soap press feeder for stress test. Return if symptoms worsen. Mahesh Pearson MD Dec 02, 2019 02:44
[2019-12-02 03:04] LABS: APPEARANCE,URINE CLEAR; BASOPHILS % (AUTO) 1.7 % (0.0-2.0); BILIRUBIN, URINE NEGATIVE (NEGATIVE); COLOR,URINE PALE YELLOW; EOSINOPHILS % (AUTO) 3.5 % (0.0-3.0); GLUCOSE, URINE (UA) NEGATIVE (NEGATIVE); HEMATOCRIT 38.8 % (42.0-52.0); HEMOGLOBIN 13.2 G/DL (14.2-18.0); KETONES,URINE NEGATIVE (NEGATIVE); LEUKOCYTE ESTERASE ,URINE NEGATIVE (NEGATIVE); LYMPHOCYTES % (AUTO) 36.5 % (20.0-45.0); MEAN CORPUSCULAR VOLUME 76 FL (80-99); MONOCYTES % (AUTO) 5.8 % (1.0-10.0); NEUTROPHILS % (AUTO) 52.5 % (45.0-75.0); NITRITE,URINE NEGATIVE (NEGATIVE); PH,URINE 7 (4.5-8.0); PLATELET COUNT 310 K/UL (150-450); PROTEIN,URINE NEGATIVE (NEGATIVE); RED BLOOD COUNT 5.08 M/UL (4.70-6.10); RED CELL DISTRIBUTION WIDTH 14.5 % (11.6-14.8); UROBILINOGEN,URINE NORMAL MG/DL (0.0-1.0); WHITE BLOOD COUNT 7.1 K/UL (4.8-10.8)
[2019-12-02 03:14] LABS: ANION GAP 6 mmol/L (5-15); BLOOD UREA NITROGEN 7 mg/dL (7-18); CARBON DIOXIDE 27 MMOL/L (21-32); CHLORIDE 105 MMOL/L (98-107); POTASSIUM 3.7 MMOL/L (3.5-5.1); SODIUM 137 MMOL/L (136-145)
[2019-12-02 03:40] VITALS: BP 153/114
[2019-12-02] MEDS ORDERED: Enalaprilat 2.5mg/2ml Inj IV ONE (04:00)
[2019-12-02] MEDS ORDERED: Ketorolac 30mg Inj IV ONE (04:30)
[2019-12-02] MEDS ORDERED: Labetalol 5mg/ml 20ml vial IV ONE (04:30)
[2019-12-02 04:38] VITALS: BP 153/119
[2019-12-02 04:56] VITALS: BP_SYST 130; BP_DIAS 69; BP_DIAS 97
[2019-12-02] MEDS ORDERED: KLONOPIN1 MG ORAL (05:25)
[2019-12-02] MEDS ORDERED: CLONIDINE HCL0.3 MG PO (05:25)
[2019-12-02 05:28] VITALS: BP 125/86
--- NOTE | 2019-12-02 17:34 | Cardiology Report ---
APPROVED REPORT EKG Measurement Heart [id number] <Conclusion> Normal sinus rhythm Minimal voltage criteria for LVH, may be normal variant Nonspecific T wave abnormality Abnormal ECG
== END 2019-12-02 05:28 | disposition home or self-care (01) ==
LOC: EDBD 02:29 → EMR 03:07
DX: R42 Dizziness and giddiness (principal); I10 Essential (primary) hypertension; R07.9 Chest pain, unspecified; Z88.8 Allergy status to other drugs, medicaments and biological substances; R00.0 Tachycardia, unspecified
CPT/HCPCS: 36415; 80048; 81003; 84484; 85025; 93005; 96374; 96375; J1885; Z7502; 99284

== ENCOUNTER 2019-12-19 09:26 | Emergency (ER) | payer MEDICAID ==
[~2019-12-19] VITALS: Ht 175.3 cm; Wt 79.4 kg
[2019-12-19] MEDS ORDERED: Morphine Sulfate 4mg/ml Inj (IV USE ONLY) IVP ONE ×2 (09:45→11:30)
[2019-12-19 09:58] LABS: APPEARANCE,URINE CLEAR; BILIRUBIN, URINE NEGATIVE (NEGATIVE); GLUCOSE, URINE (UA) NEGATIVE (NEGATIVE); HEMATOCRIT 44.3 % (42.0-52.0); KETONES,URINE NEGATIVE (NEGATIVE); LEUKOCYTE ESTERASE ,URINE 1+ (NEGATIVE); MEAN CORPUSCULAR VOLUME 77 FL (80-99); NITRITE,URINE NEGATIVE (NEGATIVE); PH,URINE 5 (4.5-8.0); PLATELET COUNT 320 K/UL (150-450); PROTEIN,URINE 1+ (NEGATIVE); RED BLOOD COUNT 5.75 M/UL (4.70-6.10); RED CELL DISTRIBUTION WIDTH 13.8 % (11.6-14.8); UROBILINOGEN,URINE 1 MG/DL (0.0-1.0); WHITE BLOOD COUNT 20.7 K/UL (4.8-10.8)
[2019-12-19 09:59] LABS: COLOR,URINE YELLOW
[2019-12-19 10:05] VITALS: BP 113/93
[2019-12-19 10:05] LABS: ANION GAP 11 mmol/L (5-15); BLOOD UREA NITROGEN 11 mg/dL (7-18); CALCIUM 9.1 MG/DL (8.5-10.1); CARBON DIOXIDE 24 MMOL/L (21-32); CHLORIDE 106 MMOL/L (98-107); CREATININE 1.2 MG/DL (0.55-1.30); POTASSIUM 4.3 MMOL/L (3.5-5.1); SODIUM 141 MMOL/L (136-145)
--- NOTE | 2019-12-19 10:08 | Diagnostic Imaging Report ---
EXAM: XR Abdomen, 2 Views CLINICAL HISTORY: ABD PAIN TECHNIQUE: Frontal view of the abdomen/pelvis with upright view of the abdomen. COMPARISON: No relevant prior studies available. FINDINGS/IMPRESSION: Nonobstructed bowel gas pattern. Relative paucity of small bowel air. No large volume free intraperitoneal air. The osseous structures are intact. Mild fecal retention.
[2019-12-19 10:09] LABS: ALANINE AMINOTRANSFERASE 8 U/L (12-78); ALBUMIN/GLOBULIN RATIO 1.5 (1.0-2.7); ALKALINE PHOSPHATASE 62 U/L (46-116); ASPARTATE AMINO TRANSFERASE 12 U/L (15-37); BILIRUBIN,TOTAL 0.3 MG/DL (0.2-1.0)
[2019-12-19] MEDS ORDERED: Omnipaque-300 100ml vial INJ PRN (10:30)
--- NOTE | 2019-12-19 10:48 | Emergency Room Report ---
History of Present Illness General Chief Complaint: Abdominal Pain Source: Patient, Medical Record Present Illness HPI 44-year-old male presents complaining of abdominal pain. Brought in by EMS from home. Been having pain for the last few days. Was seen at [facility] yesterday. Was told he had constipation and discharged on stool softeners. States the pain is getting worse. States that he vomited dark emesis today. Pain is a 10 out of 10, sharp, nonradiating. Denies chest pain or shortness of breath. Denies fevers or chills. No other aggravating relieving factors. 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 COVID-19 Screening: Negative COVID-19 COVID-19 Testing Source: Nasopharynx Patient History Past Medical History: HTN, GERD, psych hx Past Surgical History: none Pertinent Family History: none Social History: Denies: smoking, alcohol use, drug use Immunizations: UTD Reviewed Nursing Documentation: PMH: Agreed; PSxH: Agreed Nursing Documentation-PMH Past Medical History: No History, Except For Hx Cardiac Problems: Yes - irreg heartrate Hx Hypertension: Yes Hx Pacemaker: No Hx Asthma: No Hx COPD: No Hx Diabetes: No Hx Gastrointestinal Problems: Yes - constipation Hx Dialysis: No History Of Psychiatric Problem: Yes - Bipolar, anxiety, depression Hx Neurological Problems: No Hx Cerebrovascular Accident: No Hx Seizures: No Review of Systems All Other Systems: negative except mentioned in HPI Physical Exam Vital Signs Date Time Temp Pulse Resp B/P (MAP) Pulse Ox O2 Delivery O2 Flow Rate FiO2 12/19/19 09:27 97.9 67 15 100/70 (80) 97 Room Air Sp02 EP Interpretation: reviewed, normal General Appearance: alert, GCS 15, non-toxic, mild distress Head: normocephalic, atraumatic Eyes: bilateral eye normal inspection, bilateral eye PERRL ENT: hearing grossly normal, normal pharynx, no angioedema, normal voice Neck: full range of motion, supple/symm/no masses Respiratory: chest non-tender, lungs clear, normal breath sounds, speaking full sentences Cardiovascular #1: regular rate, rhythm, no edema Cardiovascular #2: 2+ carotid (R), 2+ carotid (L), 2+ radial (R), 2+ radial (L), 2+ dorsalis pedis (R), 2+ dorsalis pedis (L) Gastrointestinal: normal bowel sounds, soft, non-distended, no guarding, no rebound, tenderness Rectal: deferred Genitourinary: normal inspection, no CVA tenderness Musculoskeletal: back normal, normal range of motion, gait/station normal, non-tender Neurologic: alert, motor strength/tone normal, oriented x3, sensory intact, responsive, speech normal Psychiatric: judgement/insight normal, memory normal, mood/affect normal, no suicidal/homicidal ideation Reflexes: 3+ bicep (R), 3+ bicep (L), 3+ tricep (R), 3+ tricep (L), 3+ knee (R), 3+ knee (L) Skin: no rash Lymphatic: no adenopathy Medical Decision Making Diagnostic Impression: Primary Impression: Colitis ER Course Hospital Course 44-year-old male presents with abdominal pain differential SBO, colitis, constipation Clinical course Patient placed on stretcher. After initial history and physical I ordered labs IV fluids meds and CT Labs - leukocytosis noted, Hb/Hct stable. electrolytes ok CT A/P - colitis appreciated Reassessment patient continues to have pain and vomiting. IV fluids given. Cipro and Flagyl given. Because of insurance patient will be transferred I feel this is a highly complex case requiring extensive working including EKG/Rhythm strip, Xray/CT/US, Blood/urine lab work, repeat exams while in ED, and administration of strong opiates/narcotics for pain control, admission to hospital or close patient follow up. Diagnosis - colitis Transferred in serious condition Laboratory Tests Test 12/19/19 09:40 White Blood Count 20.7 K/UL (4.8-10.8) H Red Blood Count 5.75 M/UL (4.70-6.10) Hemoglobin 15.0 G/DL (14.2-18.0) Hematocrit 44.3 % (42.0-52.0) Mean Corpuscular Volume 77 FL (80-99) L Mean Corpuscular Hemoglobin 26.1 PG (27.0-31.0) L Mean Corpuscular Hemoglobin Concent 33.9 G/DL (32.0-36.0) Red Cell Distribution Width 13.8 % (11.6-14.8) Platelet Count 320 K/UL (150-450) Mean Platelet Volume 5.4 FL (6.5-10.1) L Neutrophils (%) (Auto) % (45.0-75.0) Lymphocytes (%) (Auto) % (20.0-45.0) Monocytes (%) (Auto) % (1.0-10.0) Eosinophils (%) (Auto) % (0.0-3.0) Basophils (%) (Auto) % (0.0-2.0) Differential Total Cells Counted 100 Neutrophils % (Manual) 92 % (45-75) H Lymphocytes % (Manual) 6 % (20-45) L Monocytes % (Manual) 2 % (1-10) Eosinophils % (Manual) 0 % (0-3) Basophils % (Manual) 0 % (0-2) Band Neutrophils 0 % (0-8) Platelet Estimate Adequate Platelet Morphology Normal Red Blood Cell Morphology Normal Urine Color Yellow Urine Appearance Clear Urine pH 5 (4.5-8.0) Urine Specific [place] 1.025 (1.005-1.035) Urine Protein 1+ (NEGATIVE) H Urine Glucose (UA) Negative (NEGATIVE) Urine Ketones Negative (NEGATIVE) Urine Blood Negative (NEGATIVE) Urine Nitrite Negative (NEGATIVE) Urine Bilirubin Negative (NEGATIVE) Urine Urobilinogen 1 MG/DL (0.0-1.0) H Urine Leukocyte Esterase 1+ (NEGATIVE) H Urine RBC 0 /HPF (0 - 0) Urine WBC 0-2 /HPF (0 - 0) Urine Squamous Epithelial Cells Occasional /LPF Urine Bacteria Occasional /HPF (NONE) Urine Mucus Few /LPF (NONE/OCC) H Sodium Level 141 MMOL/L (136-145) Potassium Level 4.3 MMOL/L (3.5-5.1) Chloride Level 106 MMOL/L (98-107) Carbon Dioxide Level 24 MMOL/L (21-32) Anion Gap 11 mmol/L (5-15) Blood Urea Nitrogen 11 mg/dL (7-18) Creatinine 1.2 MG/DL (0.55-1.30) Estimat Glomerular Filtration Rate > 60 mL/min (>60) Glucose Level 100 MG/DL (74-106) Calcium Level 9.1 MG/DL (8.5-10.1) Total Bilirubin 0.3 MG/DL (0.2-1.0) Aspartate Amino Transf (AST/SGOT) 12 U/L (15-37) L Alanine Aminotransferase (ALT/SGPT) 8 U/L (12-78) L Alkaline Phosphatase 62 U/L (46-116) Total Protein 6.7 G/DL (6.4-8.2) Albumin 4.0 G/DL (3.4-5.0) Globulin 2.7 g/dL Albumin/Globulin Ratio 1.5 (1.0-2.7) Lipase 116 U/L (73-393) Other X-Ray Diagnostic Results Other X-Ray Diagnostic Results : X-Ray ordered: KUB # of Views/Limited Vs Complete: 1 View Indication: Pain EP Interpretation: Yes Interpretation: nonspecific bowel gas, no sbo, other - fecal impaction Impression: No acute disease Electronically Signed by: Electronically signed by Fortunato Li MD CT/MRI/US Diagnostic Results CT/MRI/US Diagnostic Results : Imaging Test Ordered: CT A/P Impression COMPARISON: CT abdomen/pelvis on 11/10/2019 FINDINGS: Lung bases: Unremarkable. No mass. No consolidation. ABDOMEN: Liver: Unremarkable. No mass. Gallbladder and bile ducts: Unremarkable. No calcified stones. No ductal dilation. Pancreas: Unremarkable. No mass. No ductal dilation. Spleen: Unremarkable. No splenomegaly. Adrenals: Unremarkable. No mass. Kidneys and ureters: Unremarkable. No solid mass. No hydronephrosis. Stomach and bowel: Fluid throughout the colon is suggestive of diarrheal state. Mild prominence of the colonic douglas may represent colitis. Mildly prominent fluid filled small bowel loops could represent enteritis. Evaluation of the stomach is limited by under distention. No bowel obstruction. Diverticulosis without evidence of diverticulitis. PELVIS: Appendix: Normal appendix. Bladder: Bladder wall thickening may be at least in part accentuated by underdistention. Please correlate with urinalysis to evaluate for cystitis. Reproductive: Unremarkable as visualized. ABDOMEN and PELVIS: Intraperitoneal space: Unremarkable. No free air. No significant fluid collection. Bones/joints: No acute fracture. No dislocation. Soft tissues: Unremarkable. Vasculature: Unremarkable. No abdominal aortic aneurysm. Lymph nodes: Unremarkable. No enlarged lymph nodes. IMPRESSION: 1. Fluid throughout the colon is suggestive of diarrheal state. Mild prominence of the colonic douglas may represent colitis. 2. Mildly prominent fluid filled small bowel loops could represent enteritis. 3. Bladder wall thickening may be at least in part accentuated by underdistention. Please correlate with urinalysis to evaluate for cystitis. Last Vital Signs Date Time Temp Pulse Resp B/P (MAP) Pulse Ox O2 Delivery O2 Flow Rate FiO2 12/19/19 09:27 97.9 67 15 100/70 (80) 97 Room Air Status: improved Disposition: SHORT-TERM HOSP Condition: Serious Referrals: NON PHYSICIAN (PCP) Fortunato Li MD Dec 19, 2019 10:48
--- NOTE | 2019-12-19 11:04 | Diagnostic Imaging Report ---
EXAM: CT Abdomen and Pelvis With Intravenous Contrast CLINICAL HISTORY: ABD PAIN TECHNIQUE: Axial computed tomography images of the abdomen and pelvis with intravenous contrast. CTDI is 4.7 mGy and DLP is 251.1 mGy-cm. One or more of the following dose reduction techniques were used: automated exposure control, adjustment of the mA and/or kV according to patient size, use of iterative reconstruction technique. COMPARISON: CT abdomen/pelvis on 11/10/2019 FINDINGS: Lung bases: Unremarkable. No mass. No consolidation. ABDOMEN: Liver: Unremarkable. No mass. Gallbladder and bile ducts: Unremarkable. No calcified stones. No ductal dilation. Pancreas: Unremarkable. No mass. No ductal dilation. Spleen: Unremarkable. No splenomegaly. Adrenals: Unremarkable. No mass. Kidneys and ureters: Unremarkable. No solid mass. No hydronephrosis. Stomach and bowel: Fluid throughout the colon is suggestive of diarrheal state. Mild prominence of the colonic douglas may represent colitis. Mildly prominent fluid filled small bowel loops could represent enteritis. Evaluation of the stomach is limited by under distention. No bowel obstruction. Diverticulosis without evidence of diverticulitis. PELVIS: Appendix: Normal appendix. Bladder: Bladder wall thickening may be at least in part accentuated by underdistention. Please correlate with urinalysis to evaluate for cystitis. Reproductive: Unremarkable as visualized. ABDOMEN and PELVIS: Intraperitoneal space: Unremarkable. No free air. No significant fluid collection. Bones/joints: No acute fracture. No dislocation. Soft tissues: Unremarkable. Vasculature: Unremarkable. No abdominal aortic aneurysm. Lymph nodes: Unremarkable. No enlarged lymph nodes. IMPRESSION: 1. Fluid throughout the colon is suggestive of diarrheal state. Mild prominence of the colonic douglas may represent colitis. 2. Mildly prominent fluid filled small bowel loops could represent enteritis. 3. Bladder wall thickening may be at least in part accentuated by underdistention. Please correlate with urinalysis to evaluate for cystitis.
[2019-12-19] MEDS ORDERED: Ketorolac 30mg Inj IV ONE (11:30)
[2019-12-19] MEDS ORDERED: Ketorolac 30mg Inj ONE (11:47)
[2019-12-19 14:56] VITALS: BP 102/65
== END 2019-12-19 14:50 | disposition short-term general hospital (02) ==
LOC: EDBD 09:26 → EMR 09:59
DX: K52.9 Noninfective gastroenteritis and colitis, unspecified (principal); Z88.8 Allergy status to other drugs, medicaments and biological substances; I10 Essential (primary) hypertension; F32.9 Major depressive disorder, single episode, unspecified; F41.9 Anxiety disorder, unspecified; F31.9 Bipolar disorder, unspecified; D72.829 Elevated white blood cell count, unspecified; K57.90 Diverticulosis of intestine, part unspecified, without perforation or abscess without bleeding
CPT/HCPCS: 36415; 74018; 74177; 80053; 81003; 83605; 83690; 85007; 85025; 87040; 87181; 96361; 96365; 96368; 96375; 96376; J0744; J1885; J2270; J2405; J7030; Q9965; U0002; Z7502; 99285